=== PATIENT | female | born 1990 | race Caucasian/White ===

== ENCOUNTER 2023-12-31 23:08 | Inpatient (IN) | payer OTHER, SELFPAY ==
[2023-12-31] VITALS (14 sets, daily range): BP systolic 67–115; BP diastolic 33–80; BMI 32.0
--- NOTE | 2023-12-31 17:27 | ED.GENMED ---
History of Present Illness
<Tal Moody PA-C - Last Filed: 01/06/24 21:13>
General
Chief Complaint: Abdominal Symptoms
Source: patient
Exam Limitations: none
Time Seen by Provider: 12/31/23 16:55
Travel History
Have you had any contact with someone who has COVID-19?: No
Do you have any symptoms of coronavirus? Fever > 100 degrees, chills, cough, shortness of breath, sore throat, loss of taste or smell, muscle aches, or headache?: No
History of Present Illness
History of Present Illness:
33-year-old female presents for evaluation of fatigue myalgias fever racing heart. She was seen by the family doctor today and diagnosed with a UTI. She has been having urinary tract infections over the past several months. She was just seen by
the family doctor today and started on Bactrim for another UTI. She has been on Omnicef and Augmentin over the past several months. Her symptoms keep returning. To me she denies any urinary symptoms such as frequency urgency or dysuria. She
notes nausea. She denies chest pain or shortness of breath. She has been having a fever. Temperature at triage was 102.4.
Past History
<Tal Moody PA-C - Last Filed: 01/06/24 21:13>
Past History
ED Past Medical History: Psychiatric (Anxiety) and Other (Myasthenia gravis); Negative Asthma, HTN, Hypercholesterolemia or NIDDM
ED Past Surgical History: (X 2) and Other (Epidermal cyst, Breast reduction, Brain cyst removed, thymectomy)
Social History
Tobacco: Non-smoker
Alcohol: Occasional
Personal:
Living: with family
Phy Exam
<Tal Moody PA-C - Last Filed: 01/06/24 21:13>
Physical Exam
Physical Exam:
General: Well-appearing female no acute respiratory distress
HEENT: Normocephalic atraumatic mucosa dry neck is supple heart: Tachycardic and regular
Lungs: Clear no wheeze or Rales
Abdomen is soft nontender nondistended no guarding or rebound normal bowel sounds no costovertebral angle tenderness
Extremities: No cyanosis or edema
Skin is warm no rash or lesion
Course
<Tal Moody PA-C - Last Filed: 01/06/24 21:13>
Orders/Labs/Results
Orders:
Orders
12/31/23 16:52
EKG [Electrocardiogram (*1)] Urgent
Reason for Study: Bradycardia / Tachycardia
EKG- Treatment ONCE
12/31/23 17:15
0.9% Sodium Chloride 1000 ml [Nss] 1,000 ml IV BOLUS
Acetaminophen [Tylenol] 1,000 mg PO NOW STA
Ondansetron Injectable [Zofran] 4 mg IV NOW STA
CR Chest - 2 Views Urgent
Comment:
Reason For Exam: fever
12/31/23 17:48
COVID-19 Antigen Urgent
Source: Nasal Swab
Complete Blood Count/With Diff Urgent
Comprehensive Metabolic Panel Urgent
Lactic Acid Q4H
Comment: CANCEL 2nd LACTIC ACID IF 1st LACTIC ACID IS LESS THAN 2
Lipase Urgent
Manual Differential Urgent
Blood Culture Q30M
DEMARCUS Source: Blood/Venous
Specimen Description:
Influenza A+B Rapid Molecular Urgent
DEMARCUS Source: Nasal Swab
Specimen Description:
12/31/23 18:23
Blood Culture Q30M
DEMARCUS Source: Blood/Venous
Specimen Description:
12/31/23 18:44
0.9% Sodium Chloride 1000 ml [Nss] 1,000 ml IV BOLUS
12/31/23 20:34
0.9% Sodium Chloride 1000 ml [Nss] 1,000 ml IV BOLUS
12/31/23 20:35
Ibuprofen [Motrin] 600 mg PO NOW STA
12/31/23 20:43
Piperacillin/Tazo 3.375 Gram [Zosyn] 3.375 gram in 50 ml IV NOW
Vancomycin 1 Gram/200 ml [Vancocin] 1 gram in 200 ml IV NOW
12/31/23 20:47
CT Abd/pelvis W Iv Cont Urgent
Comment:
Reason For Exam: fever, abdominal pain
12/31/23 21:17
Lactic Acid Q4H
Comment: CANCEL 2nd LACTIC ACID IF 1st LACTIC ACID IS LESS THAN 2
Monotest Urgent
12/31/23 21:25
CT Chest Pe Study Urgent
Comment:
Reason For Exam: tachycardia, hypotension
12/31/23 22:48
Morphine Sulfate 2 mg IV PACU-Q5MPRN PRN
Morphine Sulfate 4 mg IV PACU-Q5MPRN PRN
Ondansetron Injectable [Zofran] 4 mg IV PACU-ONCEPRN PRN
Prochlorperazine [Compazine] 5 mg IV PACU-ONCEPRN PRN
Notify MD As Directed
Notify physician if: for SDS patients with known or suspected sleep obstructive sleep apnea, monitor in the
PACU.
Notify MD for any apneic/desaturation episodes
O2 Therapy [RESP] Urgent
Titrate/Wean O2 to maintain O2 sat greater than (%): 92
Special Instructions: -Provide supplemental oxygen to achieve O2 sat of 92% or greater.
-After 15 min, may wean O2 and discontinue if patient is able to maintain O2 sat of 92%
or greater during recovery period.
If patient is a discharge home, without oxygen therapy, notify anestheiologist if
unable to maintain O2 SAT of 92% or greater on room air for MD clearance.
12/31/23 22:49
Admit/Transfer Patient As Directed
Co-Sign Provider:
Level of Care: Inpatient admission
Assign to:: ICU
Physician / Group: Herminio
Diagnosis: Sepsis, Pyelonephritis, Ureteral Stone
Reason for Hospitalization: Sepsis, Pyelonephritis, Ureteral Stone
Expected length of stay greater than two midnights?: Yes
ELOS- Estimated Length of Stay in days: 5
I certify the patient meets the requirements for IP care: Yes
12/31/23 22:50
Code Status As Directed
Resuscitation Status: Full Code
12/31/23 23:00
Normosol (Mult Electrolytes) [Normosol-R] 1,000 ml IV PER PROTOCOL
01/01/24 00:23
Acetaminophen [Tylenol] 650 mg PO Q4HPRN PRN
Cefepime HCl [Maxipime] 2,000 mg IV Q8H
HYDROmorphone [Dilaudid] 0.5 mg IV Q4HPRN PRN
Lactated Ringers [Lr] 1,000 ml IV 100 mls/hr
NORepinephrine 4 MG/250 ML [Levophed] 4 mg in 250 ml IV PER PROTOCOL
Initial dose in mcg/min, then titrate:: 4
Titrate to keep:: MAP > 65 mmHg
Titrate by mcg/min:: 1-2 mcg/min
Frequency of titrations (minutes):: 5
Maximum dose in ICU in mcg/min:: 30
Maximum dose in IMU in mcg/min:: 8
Maximum dose in IVU in mcg/min:: 4
Begin to taper infusion when:: Remained at goal for 4hrs
Taper by mcg/min:: 1-2 mcg/min
Frequency of taper (minutes) if patient maintains goal:: 30
Taper to off?: Yes
If infusion off & no longer maintaining goal:: Contact Provider
Prochlorperazine [Compazine] 5 mg IV Q6HPRN PRN
01/01/24 00:23
Consult Notification Routine
Specialty to Notify: Warehouse Distribution Associate
Date consulting provider notified: 01/01/24
Time consulting provider notified: 07:03
Notified:: Provider
Warehouse Distribution Associate Consult Routine
Consulting Provider: Jeremy Bhakta
Was physician already notified: No
Reason for consult: Sepsis / Pyelo
UROLOGY CONSULT Urgent
Consulting Provider: Maximino Cope
Was physician already notified: Yes
Comment: Pyelo / Ureterolithiasis
Activity As Directed
Activity Level: Bedrest
EKG with chest pain [ECG as needed] As Directed
ECG as needed for:: Chest Pain
I/O [Intake/ Output] As Directed
Frequency: Per unit guidelines
Pneumatic Compression Sleeves As Directed
Type: Knee high
Vital Signs As Directed
Frequency: Per unit guidelines
Weight As Directed
Frequency: Daily
Oxygen Therapy [O2 Therapy] [RESP] Routine
Titrate/Wean O2 to maintain O2 sat greater than (%): 94
Rx Incentive Spirometry [RESP] Routine
Frequency: q1h while awake
DX Deep Vein Thrombosis Video Routine
01/01/24 04:42
Basic Metabolic Panel IN AM
Complete Blood Count/No Diff IN AM
Ferritin Routine
Magnesium IN AM
Phosphorus IN AM
TSH Reflex To Free T4 Routine
Vitamin B12 Routine
01/01/24 06:00
EKG [Electrocardiogram (*1)] IN AM
Reason for Study: Chest Pain
01/01/24 08:00
Levothyroxine [Synthroid] 75 mcg PO DAILY
Abnormal Lab Results
12/31/23 12/31/23
17:48 21:17
Hgb 9.6 L g/dL
(12.0-16.0)
Hct 31.0 L %
(37.0-47.0)
MCV 72.8 L fL
(81.0-99.0)
MCH 22.5 L pg
(27.0-31.0)
MCHC 31.0 L g/dL
(33.0-37.0)
RDW 18.6 H %
(11.5-14.5)
Segmented Neutrophils 78 H %
(42-75)
Band Neutrophils 15 H %
(0-3)
Lymphocytes (Manual) 3 L %
(20-51)
Sodium 131 L mmol/L
(135-145)
Potassium 3.4 L mmol/L
(3.5-5.1)
Carbon Dioxide 20 L mmol/L
(22-30)
Creatinine 1.5 H mg/dL
(0.6-1.0)
Lactic Acid 3.5 H mmol/L 2.2 H mmol/L
(0.7-2.0) (0.7-2.0)
Total Bilirubin 1.4 H mg/dl
(0.2-1.3)
12/31/23 17:48
12/31/23 17:48
Vital Signs
Initial and Last Documented VS:
Initial Vital Signs
Temp Pulse Resp BP Pulse Ox
102.4 F H 155 15 115/80 98
12/31/23 16:44 12/31/23 16:44 12/31/23 16:44 12/31/23 16:44 12/31/23 16:44
Last Documented Vital Signs
Temp Pulse Resp BP Pulse Ox
98.1 F 103 16 132/94 96
01/04/24 14:38 01/04/24 14:38 01/04/24 14:38 01/04/24 14:38 01/04/24 14:38
<Yulia Kirby MD - Last Filed: 12/31/23 22:42>
Orders/Labs/Results
Orders:
Orders
12/31/23 16:52
EKG [Electrocardiogram (*1)] Urgent
Reason for Study: Bradycardia / Tachycardia
EKG- Treatment ONCE
12/31/23 17:15
0.9% Sodium Chloride 1000 ml [Nss] 1,000 ml IV BOLUS
Acetaminophen [Tylenol] 1,000 mg PO NOW STA
Ondansetron Injectable [Zofran] 4 mg IV NOW STA
CR Chest - 2 Views Urgent
Comment:
Reason For Exam: fever
12/31/23 17:48
COVID-19 Antigen Urgent
Source: Nasal Swab
Complete Blood Count/With Diff Urgent
Comprehensive Metabolic Panel Urgent
Lactic Acid Q4H
Comment: CANCEL 2nd LACTIC ACID IF 1st LACTIC ACID IS LESS THAN 2
Lipase Urgent
Manual Differential Urgent
Blood Culture Q30M
DEMARCUS Source: Blood/Venous
Specimen Description:
Influenza A+B Rapid Molecular Urgent
DEMARCUS Source: Nasal Swab
Specimen Description:
12/31/23 18:23
Blood Culture Q30M
DEMARCUS Source: Blood/Venous
Specimen Description:
12/31/23 18:44
0.9% Sodium Chloride 1000 ml [Nss] 1,000 ml IV BOLUS
12/31/23 20:34
0.9% Sodium Chloride 1000 ml [Nss] 1,000 ml IV BOLUS
12/31/23 20:35
Ibuprofen [Motrin] 600 mg PO NOW STA
12/31/23 20:43
Piperacillin/Tazo 3.375 Gram [Zosyn] 3.375 gram in 50 ml IV NOW
Vancomycin 1 Gram/200 ml [Vancocin] 1 gram in 200 ml IV NOW
12/31/23 20:47
CT Abd/pelvis W Iv Cont Urgent
Comment:
Reason For Exam: fever, abdominal pain
12/31/23 21:17
Lactic Acid Q4H
Comment: CANCEL 2nd LACTIC ACID IF 1st LACTIC ACID IS LESS THAN 2
Monotest Urgent
12/31/23 21:25
CT Chest Pe Study Urgent
Comment:
Reason For Exam: tachycardia, hypotension
12/31/23 22:48
Morphine Sulfate 2 mg IV PACU-Q5MPRN PRN
Morphine Sulfate 4 mg IV PACU-Q5MPRN PRN
Ondansetron Injectable [Zofran] 4 mg IV PACU-ONCEPRN PRN
Prochlorperazine [Compazine] 5 mg IV PACU-ONCEPRN PRN
Notify MD As Directed
Notify physician if: for SDS patients with known or suspected sleep obstructive sleep apnea, monitor in the
PACU.
Notify MD for any apneic/desaturation episodes
O2 Therapy [RESP] Urgent
Titrate/Wean O2 to maintain O2 sat greater than (%): 92
Special Instructions: -Provide supplemental oxygen to achieve O2 sat of 92% or greater.
-After 15 min, may wean O2 and discontinue if patient is able to maintain O2 sat of 92%
or greater during recovery period.
If patient is a discharge home, without oxygen therapy, notify anestheiologist if
unable to maintain O2 SAT of 92% or greater on room air for MD clearance.
12/31/23 22:49
Admit/Transfer Patient As Directed
Co-Sign Provider:
Level of Care: Inpatient admission
Assign to:: ICU
Physician / Group: Herminio
Diagnosis: Sepsis, Pyelonephritis, Ureteral Stone
Reason for Hospitalization: Sepsis, Pyelonephritis, Ureteral Stone
Expected length of stay greater than two midnights?: Yes
ELOS- Estimated Length of Stay in days: 5
I certify the patient meets the requirements for IP care: Yes
12/31/23 22:50
Code Status As Directed
Resuscitation Status: Full Code
12/31/23 23:00
Normosol (Mult Electrolytes) [Normosol-R] 1,000 ml IV PER PROTOCOL
01/01/24 00:23
Acetaminophen [Tylenol] 650 mg PO Q4HPRN PRN
Cefepime HCl [Maxipime] 2,000 mg IV Q8H
HYDROmorphone [Dilaudid] 0.5 mg IV Q4HPRN PRN
Lactated Ringers [Lr] 1,000 ml IV 100 mls/hr
NORepinephrine 4 MG/250 ML [Levophed] 4 mg in 250 ml IV PER PROTOCOL
Initial dose in mcg/min, then titrate:: 4
Titrate to keep:: MAP > 65 mmHg
Titrate by mcg/min:: 1-2 mcg/min
Frequency of titrations (minutes):: 5
Maximum dose in ICU in mcg/min:: 30
Maximum dose in IMU in mcg/min:: 8
Maximum dose in IVU in mcg/min:: 4
Begin to taper infusion when:: Remained at goal for 4hrs
Taper by mcg/min:: 1-2 mcg/min
Frequency of taper (minutes) if patient maintains goal:: 30
Taper to off?: Yes
If infusion off & no longer maintaining goal:: Contact Provider
Prochlorperazine [Compazine] 5 mg IV Q6HPRN PRN
01/01/24 00:23
Consult Notification Routine
Specialty to Notify: Warehouse Distribution Associate
Date consulting provider notified: 01/01/24
Time consulting provider notified: 07:03
Notified:: Provider
Warehouse Distribution Associate Consult Routine
Consulting Provider: Jeremy Bhakta
Was physician already notified: No
Reason for consult: Sepsis / Pyelo
UROLOGY CONSULT Urgent
Consulting Provider: Maximino Cope
Was physician already notified: Yes
Comment: Pyelo / Ureterolithiasis
Activity As Directed
Activity Level: Bedrest
EKG with chest pain [ECG as needed] As Directed
ECG as needed for:: Chest Pain
I/O [Intake/ Output] As Directed
Frequency: Per unit guidelines
Pneumatic Compression Sleeves As Directed
Type: Knee high
Vital Signs As Directed
Frequency: Per unit guidelines
Weight As Directed
Frequency: Daily
Oxygen Therapy [O2 Therapy] [RESP] Routine
Titrate/Wean O2 to maintain O2 sat greater than (%): 94
Rx Incentive Spirometry [RESP] Routine
Frequency: q1h while awake
DX Deep Vein Thrombosis Video Routine
01/01/24 04:42
Basic Metabolic Panel IN AM
Complete Blood Count/No Diff IN AM
Ferritin Routine
Magnesium IN AM
Phosphorus IN AM
TSH Reflex To Free T4 Routine
Vitamin B12 Routine
01/01/24 06:00
EKG [Electrocardiogram (*1)] IN AM
Reason for Study: Chest Pain
01/01/24 08:00
Levothyroxine [Synthroid] 75 mcg PO DAILY
Abnormal Lab Results
12/31/23 12/31/23
17:48 21:17
Hgb 9.6 L g/dL
(12.0-16.0)
Hct 31.0 L %
(37.0-47.0)
MCV 72.8 L fL
(81.0-99.0)
MCH 22.5 L pg
(27.0-31.0)
MCHC 31.0 L g/dL
(33.0-37.0)
RDW 18.6 H %
(11.5-14.5)
Segmented Neutrophils 78 H %
(42-75)
Band Neutrophils 15 H %
(0-3)
Lymphocytes (Manual) 3 L %
(20-51)
Sodium 131 L mmol/L
(135-145)
Potassium 3.4 L mmol/L
(3.5-5.1)
Carbon Dioxide 20 L mmol/L
(22-30)
Creatinine 1.5 H mg/dL
(0.6-1.0)
Lactic Acid 3.5 H mmol/L 2.2 H mmol/L
(0.7-2.0) (0.7-2.0)
Total Bilirubin 1.4 H mg/dl
(0.2-1.3)
12/31/23 17:48
12/31/23 17:48
Vital Signs
Initial and Last Documented VS:
Initial Vital Signs
Temp Pulse Resp BP Pulse Ox
102.4 F H 155 15 115/80 98
12/31/23 16:44 12/31/23 16:44 12/31/23 16:44 12/31/23 16:44 12/31/23 16:44
Last Documented Vital Signs
Temp Pulse Resp BP Pulse Ox
98.1 F 103 16 132/94 96
01/04/24 14:38 01/04/24 14:38 01/04/24 14:38 01/04/24 14:38 01/04/24 14:38
<Tal Moody PA-C - Last Filed: 01/06/24 21:13>
MDM/Problems Addressed
Differential Diagnosis Includes:
Patient with fever and tachycardia possible UTI as an outpatient. Will check urinalysis here as well as septic prep including lactic acid blood cultures labs chest x-ray. She is febrile and tachycardic. Will hydrate give Tylenol and Zofran.
Patient has history of recurrent UTIs but is not responding well to the antibiotics.
<Tal Moody PA-C - Last Filed: 01/06/24 21:13>
*Critical Care Note
Total Time (30-74mins, 75-104mins- exclusive of procedures): Not Applicable
<Yulia Kirby MD - Last Filed: 12/31/23 22:42>
*Radiology
Radiology exam reviewed: radiology read reviewed
*Critical Care Note
comment:
55 minutes of critical care personally given by me reassessing patient's heart rate, blood pressure, reviewing patient's lab work, CT report as well as speaking to urology and hospitalist
<Yulia Kirby MD - Last Filed: 12/31/23 22:42>
Patient Management
Discussion with other providers: Hospitalist and Other (urology, Dr Cope)
<Tal Moody PA-C - Last Filed: 01/06/24 21:13>
Update Note
Update Note:
Patient reevaluated multiple times. Patient presents to be tachycardic. She became hypotensive. She received 3 L of IV normal saline. Lactic acid was elevated initially with a 15% bandemia. Patient tried multiple times to provide urine
specimen. Urine specimen is pending. But given persistent symptoms CT of abdomen and chest were ordered. PE study and abdomen IV contrast. There is potentially a mid ureteral stone on the left side. Suspect likely sepsis related to UTI and
kidney stone. These are pending official radiologist interpretation
No meningeal signs on exam.
Case signed out to ED attending.
<Yulia Kirby MD - Last Filed: 12/31/23 22:42>
Update Note
Update Note:
Patient reevaluated multiple times. Patient presents to be tachycardic. She became hypotensive. She received 3 L of IV normal saline. Lactic acid was elevated initially with a 15% bandemia. Patient tried multiple times to provide urine
specimen. Urine specimen is pending. But given persistent symptoms CT of abdomen and chest were ordered. PE study and abdomen IV contrast. There is potentially a mid ureteral stone on the left side. Suspect likely sepsis related to UTI and
kidney stone. These are pending official radiologist interpretation
No meningeal signs on exam.
Case signed out to ED attending.
CT shows obstructed left ureteral stone. Case discussed with Dr. Cope who would like to take patient to the operating room for stent. Patient is very agreeable to this. She is still hypotensive and tachycardic. Family is at the bedside and
also agrees with management to go to the OR.
ED Attending Note
<Tal Moody PA-C - Last Filed: 01/06/24 21:13>
-
Portions of this chart may have been created with voice recognition software.� Occasional wrong word or��sound alike� substitutions may have occurred due to the inherent limitations of voice recognition software.
<Yulia Kirby MD - Last Filed: 12/31/23 22:42>
ED Attending Note
Patient seen and examined by attending physician: Yes
I performed the substantive portion of visit, reviewed & personally made and approve the management plan that is documented in note by myself or ZAHEER.: Yes
ED Attending Note:
Patient presents with fever and heart rate disproportionately elevated with regards to body temperature. Patient is on her third liter of IV fluids and blood pressure 80 systolic. I am worried about sepsis. If needed, we will start patient on
pressors. Wide spectrum antibiotic started. Patient appears flushed but is fully awake, alert and conversational. Lungs sound clear. Heart sounds regular but tachy. Abdomen is soft throughout with mild lower abdominal tenderness. Still
awaiting urinalysis.
Discharge Plan
Departure
Patient Disposition: Admit
Date of Disposition: 12/31/23
Time of Disposition: 22:12
Admit to: OR
Presentation/result/management discussed w/ accepting MD/DO: Hospitalist
Patient with high blood pressure during this ER visit?: No
Condition: Critical
Discharge Problem:
urosepsis, Hypotension
Interventions
Interventions:
*Risk Screen - Suicide Last Done: 12/31/23 23:19
*General Assessment Last Done: 12/31/23 23:19
*Neglect/Abuse Screening Last Done: 12/31/23 23:19
ED- Fall Risk Assessment Last Done: 12/31/23 17:50
*ED COVID-19 Vaccine History Last Done: 12/31/23 16:44
*Nursing Disposition Last Done: 12/31/23 23:19
[id number] Assessment Last Done: 12/31/23 17:50
Discharge Date and Time
Discharge Date/Time: 12/31/23 23:20
[2023-12-31] MEDS: NSS 1000 IV ×3 (17:47→20:42)
[2023-12-31] MEDS: ZOFRAN 4 MG IV (17:49)
[2023-12-31] MEDS: TYLENOL 1000 MG PO (17:51)
[2023-12-31 18:13] LABS: Hemoglobin 9.6 g/dL (12.0-16.0); Mean Corpuscular Hgb 22.5 pg (27.0-31.0); Mean Corpuscular Volume 72.8 fL (81.0-99.0); Mean Platelet Volume 8.7 fL (7.4-10.4); Platelet Count 378 10^3/uL (130-400); Red Blood Cell Count 4.26 10^6/uL (4.20-5.40); Red Cell Dist. Width 18.6 % (11.5-14.5); White Blood Cell Count 6.6 10^3/uL (4.8-10.8)
[2023-12-31 18:22] LABS: Lactic Acid 3.5 mmol/L (0.7-2.0)
[2023-12-31 18:23] LABS: ALT (SGPT) 18 U/L (0-35); AST (SGOT) 23 U/L (14-36); Albumin 3.9 g/dl (3.5-5.0); Alkaline Phosphatase 101 U/L (38-126); Blood Urea Nitrogen 13 mg/dl (7-17); Calcium 8.9 mg/dl (8.4-10.2); Carbon Dioxide 20 mmol/L (22-30); Chloride 98 mmol/L (98-107); Estimated Creatinine Clearance 49 ml/min; Glucose 94 mg/dl (70-99); Potassium 3.4 mmol/L (3.5-5.1); Sodium 131 mmol/L (135-145); Total Bilirubin 1.4 mg/dl (0.2-1.3); Total Protein 7.1 g/dl (6.3-8.2)
[2023-12-31 18:24] LABS: COVID-19 Antigen Negative (Negative)
[2023-12-31 18:27] LABS: Absolute Neutrophils -Man Diff 6.1 10^3/uL (1.4-6.5); Band Neutrophils 15 % (0-3); Lymphocytes 3 % (20-51); Monocytes 2 % (2-9); Segmented Neutrophils 78 % (42-75)
[2023-12-31 18:28] LABS: Anisocytosis Slight; Metamyelocytes 2 % (-); Normal RBC Morphology No; Ovalocytes Slight; Platelets Checked Yes; Total Cells Counted 100
[2023-12-31 18:35] LABS: Lipase 29 U/L (23-300)
[2023-12-31] MEDS: MOTRIN 600 MG PO (20:41)
[2023-12-31] MEDS: ZOSYN 50 IV (20:51)
[2023-12-31] MEDS: VANCOCIN 200 IV (21:21)
[2023-12-31 21:40] LABS: Monotest Negative (Negative)
[2023-12-31 21:42] LABS: Lactic Acid 2.2 mmol/L (0.7-2.0)
--- NOTE | 2023-12-31 22:16 | EDRN ---
Attempt @ straight cath; resistance met, unable to pass cath and no urine output. aware.
--- NOTE | 2023-12-31 23:05 | HPS.HSE ---
Family Physician
-
Family Physician: Amira Mak
Chief Complaint
-
Fevers / Chills, N/V
History of Present Illness
Patient is a 33y F with PMH significant for myasthenia gravis, brain mass and obesity who presents to ED complaining of fevers / chills, myalgias and N/V. History obtained from patient and family at the bedside. Patient states that she has been
having intermittent symptoms since 07/2023. She was seen in the ED here in October for similar symptoms and diagnosed with UTI. She was treated with abx and felt improved for a time; however, her symptoms eventually recurred. Her current symptoms
have been present for about 2 days and include fevers and shaking chills, N/V, myalgias and fatigue. She denies any abdominal pain or flank pain. No dysuria or grossly bloody urine.
In the ED, patient is noted to be febrile to 102.9, tachycardic in the 150s and hypotensive as low as 60s/30s.
Medical History
Past Medical History
Past Medical History: Reports Other
Additional Past Medical History:
Myasthenia Gravis (last episode was 08/2023)
Hypothyroidism
Epidermoid Cyst R Occipital Region
Anxiety / Depression
Obesity
Past Surgical History: Reports Other
Additional Past Surgical History:
Right Occipital Epidermoid Cyst Excision
Breast Reduction
x 2
Thymectomy
Social History
Tobacco: Non-smoker
Alcohol: Occasional
Drug: None
Personal:
Living: With Family
Family History
Family History: Other (Mother: HTN)
Allergies / Home Medications
Allergies reflects when Allergies were last updated in [facility].
Home Medications with original date entered in [facility]
Allergy/Medication List:
Allergies
Allergy/AdvReac Type Severity Reaction Status Date / Time
benzonatate Allergy Itching Verified 12/31/23 19:40
[From Mone Kayode]
Home Medications
acetaminophen 325 mg tablet (Tylenol) 650 mg PO Q4H PRN mild pain 12/31/23
levothyroxine 75 mcg tablet 75 mcg PO DAILY 12/31/23
sulfamethoxazole 800 mg-trimethoprim 160 mg tablet 1 tab PO BID 12/31/23
venlafaxine 150 mg capsule,extended release 24 hr 150 mg PO HS 12/31/23
Review of Systems
-
History Source: Patient and Family
A 12 point ROS was completed and negative except as noted: Yes
Constitutional: Reports Fever, Fatigue and Chills
EENT: Denies Sore Throat
Respiratory: Denies Cough or Trouble Breathing
Cardiac: Denies Chest Pain or Palpitations
Abdomen/GI: Reports Nausea, Vomiting and Anorexia; Denies Abdominal Pain, Diarrhea, Bloody Stools or Black Stools
: Denies Dysuria, Frequency, Flank Pain, Bleeding or Dark Urine
Musculoskeletal: Denies Joint Pain or Edema
Neurological: Reports Dizzy and Headache
Psych: Denies Depression or Anxiety
Physical Exam
Vital Signs
Vital Signs
Temp Pulse Resp BP Pulse Ox
99.6 F 121 25 86/46 97
12/31/23 19:19 12/31/23 22:15 12/31/23 22:15 12/31/23 22:02 12/31/23 22:15
Physical Exam
General: Other (Ill-appearing 33y F awake and alert and able to answer questions.)
HEENT: Other (Dry MM. )
Respiratory: Clear; No Wheezes, Rales or Rhonchi
Cardiac: S1/S2 and Tachycardia; No Murmur
GI: Soft, Non Tender, Non Distended and Normal Bowel Sounds
Musculoskeletal: No Clubbing, No Cyanosis and No Edema
Neuro: AO x 3 and Nonfocal/grossly intact
Laboratory Results
-
12/31/23 17:48
12/31/23 17:48
Laboratory Results
Lactic Acid 2.2 mmol/L (0.7-2.0) H 12/31/23 21:17
Total Bilirubin 1.4 mg/dl (0.2-1.3) H 12/31/23 17:48
AST 23 U/L (14-36) 12/31/23 17:48
ALT 18 U/L (0-35) 12/31/23 17:48
Alkaline Phosphatase 101 U/L (38-126) 12/31/23 17:48
Lipase 29 U/L (23-300) 12/31/23 17:48
Impression/Plan
-
A/P: Patient is a 33y F with PMH significant for hypothyroidism, myasthenia and depression who presents to ED complaining of fevers / chills, N/V/D x 2 days.
Obstructing Right Ureteral Stone
Right Pyelonephritis secondary to the above
Sepsis / Septic Shock secondary to the above
- Patient to be taken urgently to the OR for ureteroscopy, stent, stone retrieval to alleviate obstruction.
- Admit to ICU post-procedure.
- Patient presents with symptoms and imaging evidence consistent with R sided pyelonephritis and life threatening organ dysfunction as evidenced by hypotension and IRENE.
- IV abx with cefepime pending culture data (October culture was positive for hagan-senstive E coli).
- Aggressive IVF support +/- pressor support as needed to maintain perfusion.
- Supportive care with antipyretics, antiemetics, pain control, etc.
- Follow for clinical improvement.
- Appreciate Urology evaluation and urgent intervention.
- Cupola Tapper Helper consultation.
IRENE
- SCr = 1.5 compared to baseline of 0.7.
- Likely secondary to above obstruction plus sepsis and hypotension.
- IVF / pressor support as noted above to maintain adequate perfusion.
- Follow for improvement in renal function.
Hypothyroidism
- Continue T4 supplementation.
Myasthenia Gravis
- Stable. No symptoms since 08/2023.
- Patient is s/p thymectomy and notes that her symptoms gradually resolved following this procedure.
- Not currently on any maintenance medications, etc.
- Monitor for any new symptoms, etc.
- Consider acute steroid therapy should any symptoms develop.
Microcytic Anemia
- Unclear etiology. No reported / specific blood loss, etc.
- Check iron studies, etc.
- Follow for changes post-operatively and with aggressive volume resuscitation.
Mild Hyponatremia
Mild Hypokalemia
- IVF support / electrolyte replacement.
- Follow for improvement and adjust fluids as needed.
DVT Prophylaxis: SCDs
Code Status: Full
--- NOTE | 2023-12-31 23:32 | W.PN.URO.CBU ---
Today's Communication / Plan
-
to op room cysto stent attempt
Assessment / Plan
-
small but obstructing stoe with fever 102 and hypotension for stent placemnt
Diagnosis
-
Date of Service: December 31, 2023
-
Patient Diagnosis:left obstructing stone with sepsis syndrome
Post Op Day:
Subjective
-
left colic and feels poor;y flu like sxs
Objective
-
Vital Signs
Temp Pulse Resp BP Pulse Ox
99.6 F 118 25 86/55 96
12/31/23 19:19 12/31/23 23:00 12/31/23 23:00 12/31/23 23:00 12/31/23 23:00
Laboratory Results
12/31/23 17:48
12/31/23 17:48
Review of Systems
-
Constitutional: Fever, Fatigue, Night Sweats and Chills
: Flank Pain
Physical Exam
-
General - well developed, well nourished, toxic
Chest - clear bilaterally
Abdomen - soft, non-tender, positive bowel sounds, left CVAT, no incisional pain or distention
Genitalia - normal
Rectal - normal
Skin - warm & dry with no rash
Neuro - AOx3, no motor deficits
Extremities - no clubbing, no cyanosis, no edema
Incision - clean, dry
Dressing - clean, dry, intact
Care Review
Data Reviewed
Discussed with: Hospitalist, Nursing and Family
CT Scan: Image Pers Reviewed
--- NOTE | 2023-12-31 23:57 | W.PN.UPDATE ---
Update Note
Progress Note Update
sucessful stenting and stome manipulation cathed urine specimen sent janey highly obstructed coelho polaced to allow i/o measurements iv orders per retail department manager may eat
[2024-01-01] VITALS (50 sets, daily range): BP systolic 83–147; BP diastolic 51–125; BMI 32.6
[2024-01-01 00:29] LABS: Urine Albumin 1+ (Neg - Trace); Urine Bilirubin Negative (Negative); Urine Color Yellow; Urine Glucose Negative (Negative); Urine Ketone Trace (Negative); Urine Leukocyte 2+ (Negative); Urine Nitrite Negative (Negative); Urine Occult Blood 2+ (Negative); Urine Specific Gravity 1.005 (<1.030); Urine Urobilinogen Negative (Neg - 1+)
[2024-01-01] MEDS: LEVOPHED 250 IV (00:31)
--- NOTE | 2024-01-01 00:32 | PTCARENOTE ---
Pt received from PACU at 0020.
[2024-01-01 00:35] LABS: Urine Character Cloudy (Clear)
[2024-01-01] MEDS: LR 1000 IV ×3 (00:52→16:00)
[2024-01-01 01:05] LABS: Urine Bacteria Moderate (Negative); Urine White Cell 50-60 /HPF (0-5)
[2024-01-01] MEDS: MAXIPIME 2000 MG IV ×2 (01:48→14:10)
[2024-01-01] MEDS: STERILE WATER FOR INJECTION 10 ML IV ×2 (01:50→14:10)
[2024-01-01 02:18] LABS: Lactic Acid 1.4 mmol/L (0.7-2.0)
--- NOTE | 2024-01-01 02:42 | PTCARENOTE ---
Pt tolerated transfer well.Pt received with Levophed infusing at 2mcgs an hour,BP once settled 92/63,ST front desk monitor,O2 sats on 2lnc 99%.Pt is oriented,denies pain,physical assessment preformed with ease.Mosher catheter intact,urine is
yellow,clear.IVF LR initiated at 200mls an hour.Close observation ongoing throughout the night.
[2024-01-01 04:59] LABS: Hematocrit 27.4 % (37.0-47.0); Hemoglobin 8.5 g/dL (12.0-16.0); Mean Corpuscular Hgb 22.8 pg (27.0-31.0); Mean Corpuscular Volume 73.5 fL (81.0-99.0); Mean Platelet Volume 8.6 fL (7.4-10.4); Platelet Count 305 10^3/uL (130-400); Red Blood Cell Count 3.73 10^6/uL (4.20-5.40); Red Cell Dist. Width 18.6 % (11.5-14.5); White Blood Cell Count 15.4 10^3/uL (4.8-10.8)
[2024-01-01 05:21] LABS: APTT 26.2 Sec (23.4-35.0); INR 1.67; PT 19.5 Sec (11.4-14.6)
[2024-01-01 06:24] LABS: Blood Urea Nitrogen 13 mg/dl (7-17); Calcium 7.4 mg/dl (8.4-10.2); Carbon Dioxide 14 mmol/L (22-30); Chloride 113 mmol/L (98-107); Estimated Creatinine Clearance 66 ml/min; Glucose 143 mg/dl (70-99); Iron 28 ug/dl (37-170); Magnesium 1.6 mg/dl (1.6-2.3); Percent Saturation 11 % (20-50); Phosphorus 3.8 mg/dl (2.5-4.5); Sodium 136 mmol/L (135-145); Total Iron Binding Capacity 234 ug/dl (265-497); eGFR > 60.00
--- NOTE | 2024-01-01 06:41 | W.PN.ANS.POP ---
Anesthesia Post Operative
- Anesthesia Post Op Note
Vital Signs Stable-See Nursing Note: Yes (levophed)
Airway Patent: Yes
Adequate Pain Control: Yes
Change in Mental Status: No
Current Postoperative Nausea & Vomiting: No
Anesthesia Complications: No
General Anesthetic Recall: No
Unplanned Admission: No
Post Op Hydration Adequate: Yes
[2024-01-01 06:42] LABS: TSH Reflex To Free T4 0.96 uIU/ml (0.47-4.68)
[2024-01-01 07:02] LABS: Vitamin B12 416 pg/ml (239-931)
[2024-01-01] MEDS: SYNTHROID 75 MCG PO (07:25)
[2024-01-01] MEDS: NSS (PRESERVATIVE FREE) 10 ML IV (07:25)
[2024-01-01] MEDS: PROTONIX IV 40 MG IV (07:25)
--- NOTE | 2024-01-01 07:56 | PTCARENOTE ---
Patient received from mold shifter, presents as assessed. Patient is alert and oriented x3, pleasant. Moves all extremities. NSR to ST on the monitor, good pulses, no edema. Patient maintains on 2lnc, lungs CTA. Abdomen round, obese. Tender to
palpation in left upper and lower quadrants. Patient reports intermittent nausea. Patient reports minor bladder spasms. Mosher catheter in place draining clear yellow urine. Mosher care provided. Skin CDI. Levophed infusing, LR infusing. Patient
resting currently, offers no complaints.
--- NOTE | 2024-01-01 08:02 | CON.INTV ---
Consultation
Consultation Request
Date/Time Consultation Requested: 01/01/202422
Date/Time Consultation Performed: 01/01/2024800
Requesting Provider: Dr. Durham
Performing Provider: Jeremy Bhakta MD
Reason for Consultation: Shock
Medical History
-
Chief Complaint: Weak/chills/fever
History of Present Illness:
33-year-old F with PMHx of MG s/p thymectomy, and recurrent UTI who p/w fever, chills and general malaise for several days. She says that she has been on several different antibiotics since July 2023. 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
prescribed Bactrim and a referral to urology was also given, however this was not going to be available until next month. Her chills continued and she had a fever yesterday to 103.8 �F. She was then advised to come to the hospital by a friend who
works here at [facility]. In the ER she was febrile to 102.4 �F, tachycardic to 155 bpm, breathing at 15 breaths/min, BP 115/80 and saturating 98% on room air. Unfortunately her blood pressure continued to drop and was in the 80s/40s
requiring vasopressors with Levophed. CT A/P shows 2.5mm obstructing calculus of proximal-mid left ureter with mild left hydronephrosis. Labs showed hyponatremia 131, hypokalemia to 3.4, IRENE with creatinine 1.5, lactate elevated at 3.5, total
bilirubin elevated at 1.4. Hb 9.6, platelets 378. Monoscreen was negative and COVID antigen was also negative. Patient was given 3 L total of IV fluids with NS 0.9%, as well as given vancomycin/Zosyn, ibuprofen and Tylenol. Urology was consulted
and patient was brought to OR for cystoscopy with stone manipulation and JJ-stent placement. Pt TRX to ICU post-op due to hypotension on vasopressors.
When I saw the patient this morning she was in bed saying she feels much better, still feels very tired. She is having bladder spasms at times but she is getting Valium which is helping. She is still tachycardic and occasionally heart rate drops
down to the 50s. Current vitals are: Heart rate 126, BP 105/73, SpO2 98% on room air. She is currently off of Levophed. She denies any back pain, headache, chest pain, shortness of breath, fevers or chills.
PMHx: Myasthenia gravis (last episode reportedly in August 2023), hypothyroidism, epidermoid cyst right occipital region, anxiety/depression, obesity
PSHx: Right occipital epidermoid cyst excision, breast reduction, section X2, thymectomy
Past Medical History
Past Medical History: Other (above as per HPI)
Past Surgical History: Other (above as per HPI)
Social History
Tobacco: Non-smoker
Alcohol: Occasional
Drug: None
Personal:
Living: With Family
Family History
Family History: Hypertension (Mother)
Allergies / Home Medications
Allergies
Allergy/AdvReac Type Severity Reaction Status Date / Time
benzonatate Allergy Itching Verified 12/31/23 19:40
[From Mone Headley]
Home Medications
Medication Instructions Recorded Confirmed Last Taken Type
acetaminophen 325 mg tablet 650 mg PO Q4H PRN mild pain 12/31/23 12/31/23 12/31/23 History
(Tylenol)
levothyroxine 75 mcg tablet 75 mcg PO DAILY Thyroid 12/31/23 12/31/23 12/31/23 History
sulfamethoxazole 800 1 tab PO BID Infection 12/31/23 12/31/23 12/31/23 History
mg-trimethoprim 160 mg tablet
venlafaxine 150 mg 150 mg PO HS Mental Health/Anxiety 12/31/23 12/31/23 12/30/23 History
capsule,extended release 24 hr
Review of Systems
-
History Source: Patient
All other systems: Negative unless noted (12 point ROS performed and is negative unless mentioned above.)
Vitals / Labs / Diagnostic Testing
Vital Signs
Temp Pulse Resp BP Pulse Ox
99.0 F 122 26 131/83 99
01/01/24 07:53 01/01/24 07:45 01/01/24 07:45 01/01/24 07:30 01/01/24 07:47
Lab Data
01/01/24 04:42
01/01/24 04:42
Laboratory Results
01/01/24
04:42
PT 19.5 H
INR 1.67
APTT 26.2
Microbiology
12/31/23 17:48 Nasal Swab Influenza Types A & B (JENNIFER) - Final
Negative for Influenza A & B, NAAT
Negative results must be combined with clinical observations
and patient history.
Nucleic Acid Amplification test (NAAT)performed on the
[employer] platform.
Diagnostic Testing:
Physical Exam
-
HEENT: Normocephalic, Anicteric and Moist Mucous Membranes
Cardiovascular: Peripheral Edema (negative) and Other (Tachycardic)
Respiratory: Rales (Bibasilar) and Non-Labored Respirations
GI: Soft, Non Distended and Non Tender
Neurology: Awake and Alert
Skin: Warm and Dry
General: Comfortable and Chills (negative)
Assessment
-
Assessment: 33-year-old F with PMHx of MG s/p thymectomy, and recurrent UTI who p/w fever, chills and general malaise for several days. She says that she has been on several different antibiotics since July 2023. She saw her PCP 1 day [employer] and
was prescribed Bactrim and a referral to urology was also given, however this was not going to be available until next month. Her chills continued and she had a fever yesterday to 103.8 �F. She was then advised to come to the hospital by a friend
who works here at [facility]. In the ER she was febrile to 102.4 �F, tachycardic to 155 bpm, breathing at 15 breaths/min, BP 115/80 and saturating 98% on room air. Unfortunately her blood pressure continued to drop and was in the 80s/40s
requiring vasopressors with Levophed. CT A/P shows 2.5mm obstructing calculus of proximal-mid left ureter with mild left hydronephrosis. Labs showed hyponatremia 131, hypokalemia to 3.4, IRENE with creatinine 1.5, lactate elevated at 3.5, total
bilirubin elevated at 1.4. Hb 9.6, platelets 378. Monoscreen was negative and COVID antigen was also negative. Patient was given 3 L total of IV fluids with NS 0.9%, as well as given vancomycin/Zosyn, ibuprofen and Tylenol. Urology was consulted
and patient was brought to OR on 12/31/2023 for cystoscopy with stone manipulation and JJ-stent placement. Pt TRX to ICU post-op due to hypotension on vasopressors.
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
Impression:
#Septic shock related to stone-related UTI (pyelonephritis)
#Left ureteral 2.5 mm obstructive calculus with mild left hydronephrosis s/p cystoscopy with stone manipulation and JJ-stent placement (POD#1)
#Pyelonephritis due to left ureteral obstructive stone
#Tachycardia - appears to be sinus and occasionally HR drops to mid-50s (QTc 528ms on admission EKG)
#Acute kidney injury due to postobstructive acidemia in the setting of shock
#Metabolic acidosis with normal anion gap
#Acute anemia on chronic anemia (baseline Hb 9.5-10g/dL - appears to have AOCD with low TIBC and normal ferritin)
#Hx of hagan-sensitive E. coli UTI (Oct 2023)
#Elevated Total bilirubin with otherwise normal LFTs
Plan:
- Continue vasopressors and wean off Levophed as tolerated while maintaining MAP >65
- Patient continues to have bladder spasms � continue with Valium as needed
- Continue with IV antibiotics with cefepime (started 11/02/2023) and narrow ABx once cultures return and she is off vasopressors for >12-24 hrs - I presume she will need 10-14 days total of ABx
- Urology on board and recs appreciated --> would strain urine in attempt to collect stone for analysis. Eventual outpatient follow up for ESWL
- Follow up infectious workup with blood and urine Cx
- Goal BG 140-180mg/dL
- Monitor Hb with serial H/H and transfuse if needed to keep Hb>7g/dL, keep plt>50k
- Monitor tachycardia and if worsens then re-check EKG and consider cardiology consult
- Considering she has received multiple contrast CT studies and already has an IRENE, she is at risk for contrast-induced IRENE. Resume IVF for now in attempt to help prevent worsening IRENE
- Replete electrolytes with K>4, Mg>2
- Resume effexor
- Continue LT4
- Pain control
- Anti-emetics as needed
- Nebulized bronchodilators as needed - pt not currently bronchospastic so will hold off
- stress ulcer ppx: n/a
- DVT ppx: start HSQ 5000 units q12hr given her acute anemia
Critical care statement: A total of 40 minutes of critical care time was provided for this patient today. This includes management of unstable vital signs, evaluation of the patient at bedside, reviewing the patient's pertinent medical records
including radiographs, microbiology, laboratory evaluations, and discussion with primary team, consultants, pharmacy, nutrition, physical therapy, case management, charge nurse, critical care nursing, and respiratory therapy.
Data:
CXR 12-31-2023: No active cardiopulmonary disease.
CT Abd/Pelvis with IV contrast 12-31-2023:
1). There is a 2.5 mm obstructing calculus in the proximal-mid left ureter associated with mild left hydronephrosis, mild left perinephric edema and delayed function on the left. There is mild associated thickening of the wall of proximal left ureter
2). There is a 1 mm nonobstructing calculus in the lower pole of the right kidney
CTA Chest 12-31-2023: There is no pulmonary embolism
[2024-01-01] MEDS: VALIUM INJECTION 5 MG IV (09:13)
--- NOTE | 2024-01-01 11:40 | W.PN.URO.CBU ---
Today's Communication / Plan
-
per hospitalst
Assessment / Plan
-
small but obstructing stoe with fever 102 and hypotension now stabilizing post stent plan as per hospitalist eventual outpatient tx of stone
Diagnosis
-
Date of Service: January 01, 2024
-
Patient Diagnosis:
Post Op Day:
Patient Diagnosis:left obstructing stone with sepsis syndrome
Post Op Day:
Subjective
-
much improved
Objective
-
Vital Signs
Temp Pulse Resp BP Pulse Ox
97.2 F 88 29 112/85 97
01/01/24 11:24 01/01/24 10:00 01/01/24 10:00 01/01/24 10:00 01/01/24 10:00
Intake and Output
12/31/23 01/01/24 01/02/24
06:59 06:59 06:59
Intake Total 1082.5 / 1297.5 856.3 / 856.3
Output Total 2800 / 3300 800 / 800
Balance -1717.5 / -2002.5 56.3 / 56.3
Intake:
IV fluids (Total) 1082.5 / 1297.5 856.3 / 856.3
Levophed 82.5 / 97.5 56.3 / 56.3
Lr 1,000 ml @ 100 mls/hr IV . 1000 / 1200 800 / 800
Q10H LULÚ Rx#:[id number]
Output:
Urine, Mosher 2800 / 3300 800 / 800
Laboratory Results
01/01/24 04:42
Review of Systems
-
: Frequency
Physical Exam
-
General - well developed, well nourished, no acute distress
Chest - clear bilaterally
Abdomen - soft, non-tender, positive bowel sounds, no CVAT, no incisional pain or distention
Genitalia - normal
Rectal - normal
Skin - warm & dry with no rash
Neuro - AOx3, no motor deficits
Extremities - no clubbing, no cyanosis, no edema
Incision - clean, dry
Dressing - clean, dry, intact
Care Review
Data Reviewed
Discussed with: Nursing and Family
CT Scan: Image Pers Reviewed
--- NOTE | 2024-01-01 12:00 | PTCARENOTE ---
Patient IVF adjusted per order. Levophed titrating down. Effexor to restart tonight. Patient reports bladder spasms, Dr. Cope informed, valium order received. Patient is resting comfortably without issue.
[2024-01-01] MEDS: LR IV (14:10)
[2024-01-01 15:52] LABS: Hemoglobin 8.5 g/dL (12.0-16.0)
[2024-01-01] MEDS: CALCIUM GLUCONATE 100 IV (16:00)
--- NOTE | 2024-01-01 16:00 | PTCARENOTE ---
Patient tolerated 2 hours OOB to chair. IVF and calcium administered per order. Patient resting in bed, offers no complaints.
--- NOTE | 2024-01-01 17:05 | W.PN.HOSP.TC ---
Today's Communication/Plan
-
Continue IV antibiotics
Continue IV fluids
Doing better
Follow cultures
Appreciate Cnc Lathe Programmer recommendations
Assessment / Plan
Assessment / Plan
Physical Exam
General: Not in acute distress
HEENT: Other (Dry MM. )
Respiratory: Clear to Auscultation Bilaterally
Cardiac: S1/S2 and Tachycardia
GI: Soft, Non Tender, Non Distended and Normal Bowel Sounds
Musculoskeletal: No Cyanosis and No Edema
Neuro: AO x 3 and Nonfocal/grossly intact

Assessment/Plan
Patient is a 33y F with PMH significant for hypothyroidism, myasthenia and depression who presents to ED complaining of fevers / chills, N/V/D x 2 days.
Obstructing Right Ureteral Stone with mild left hydronephrosis
Right Pyelonephritis secondary to the above
Sepsis / Septic Shock secondary to the above
- Continue monitoring in ICU
- Patient presents with symptoms and imaging evidence consistent with R sided pyelonephritis and life threatening organ dysfunction as evidenced by hypotension and IRENE.
- IV abx with cefepime pending culture data (October culture was positive for hagan-senstive E coli).
- Aggressive IVF support +/- pressor support as needed to maintain perfusion.
- Supportive care with antipyretics, antiemetics, pain control, etc.
- Follow for clinical improvement.
- Appreciate Urology evaluation and urgent intervention: stent (cystoscopy, left stone manipulation, left double-J stent placement placed on December 31, 2023)
- Cnc Lathe Programmer consultation.
- Wean vasopressors as tolerated
IRENE likely post-renal
- SCr = 1.5 compared to baseline of 0.7.
- Likely secondary to above obstruction plus sepsis and hypotension.
- IVF / pressor support as noted above to maintain adequate perfusion.
- Follow for improvement in renal function.
Hypothyroidism
- Continue T4 supplementation.
Myasthenia Gravis
- Stable. No symptoms since 08/2023.
- Patient is s/p thymectomy and notes that her symptoms gradually resolved following this procedure.
- Not currently on any maintenance medications, etc.
- Monitor for any new symptoms, etc.
- Consider acute steroid therapy should any symptoms develop.
Microcytic Anemia
- Unclear etiology. No reported / specific blood loss, etc.
- Check iron studies, etc.
- Follow for changes post-operatively and with aggressive volume resuscitation.
Mild Hyponatremia
Mild Hypokalemia
- IVF support / electrolyte replacement.
- Follow for improvement and adjust fluids as needed.
DVT Prophylaxis: Heparin Subq
Code Status: Full
Anticipated Discharge: > 48 hours
Subjective/Interval History
-
Date of Service: January 01, 2024
Patient was seen and examined. She reported she felt much better than when she came in, and feels more alert as well. She ordered breakfast/lunch.
Objective Data
-
Labs:
Laboratory Results
01/01/24 01/01/24
04:42 15:30
WBC 15.4 H
Hgb 8.5 L 8.5 L
Hct 27.4 L
Plt Count 305
PT 19.5 H
INR 1.67
APTT 26.2
Sodium 136
Potassium 4.0
Chloride 113 H
Carbon Dioxide 14 L*
BUN 13
Creatinine 1.1 H
Glucose 143 H
Calcium 7.4 L D
Vital Signs:
Vital Signs
Temp Pulse Resp BP Pulse Ox
98.2 F 122 33 95/70 96
01/01/24 15:41 01/01/24 13:30 01/01/24 13:30 01/01/24 13:30 01/01/24 13:30
I&O
12/31/23 01/01/24 01/02/24
06:59 06:59 06:59
Intake Total 1082.5 / 1297.5 1547.6 / 1547.6
Output Total 2800 / 3300 1300 / 1300
Balance -1717.5 / -2002.5 247.6 / 247.6
--- NOTE | 2024-01-01 17:11 | CM ---
apartment maintenance manager reviewed patient's chart and met with patient and patient lives with her spouse and children in a 2 story home, patient is independent with adl's and ambulation, no dme, patient drives, home when stable no needs.
Pharmacy [facility]
PCP: [facility]
Plan; Home when stable, no needs.
[2024-01-01] MEDS: HEPARIN 5000 UNITS SC (20:07)
[2024-01-01] MEDS: EFFEXOR XR 150 MG PO (20:07)
[2024-01-01] MEDS: TYLENOL 650 MG PO (20:12)
--- NOTE | 2024-01-01 20:30 | PTCARENOTE ---
received patient. oriented x3, drowsy. c/o generalized fatigue, PRN tylenol given. ST on monitor. + pulses. on RA, lungs CTA, denies SOB. abdomen tender, denies pain. coelho intact, draining clear yellow urine. IVF infusing. pt repositions self. care
ongoing.
[2024-01-02] VITALS (9 sets, daily range): BP systolic 99–128; BP diastolic 60–99; BMI 32.7
[2024-01-02] MEDS: STERILE WATER FOR INJECTION 10 ML IV ×2 (00:14→14:02)
[2024-01-02] MEDS: MAXIPIME 2000 MG IV ×2 (00:14→14:01)
[2024-01-02] MEDS: LR 1000 IV (00:14)
--- NOTE | 2024-01-02 04:36 | PTCARENOTE ---
patient reassessed. systems unchanged. pt repositioning self. remains ST on monitor, denies pain, on RA. coelho draining adequate amount of clear yellow urine. coelho care done. AM labs sent. ice pack provided for complaints of puffiness around eyes.
care ongoing.
[2024-01-02 04:53] LABS: % Basophils 0.1 % (0-2); % Eosinophils 1.1 % (0-6); % Immature Granulocytes 0.8 % (0-0.5); % Lymphocytes 6.8 % (20.5-51.1); % Neutrophils 87.2 % (42.2-75.2); Absolute Eosinophils 0.1 10^3/uL (0-0.7); Absolute Immature Granulocytes 0.1 10^3/uL (0-0.05); Absolute Lymphocytes 0.6 10^3/uL (1.2-3.4); Absolute Monocytes 0.3 10^3/uL (0.1-0.6); Absolute Neutrophils 7.4 10^3/uL (1.4-6.5); Hematocrit 22.9 % (37.0-47.0); Hemoglobin 7.2 g/dL (12.0-16.0); Mean Corp Hgb Conc. 31.4 g/dL (33.0-37.0); Mean Corpuscular Hgb 22.7 pg (27.0-31.0); Mean Corpuscular Volume 72.2 fL (81.0-99.0); Mean Platelet Volume 9.1 fL (7.4-10.4); Nucleated Red Blood Cells % 0 %; Platelet Count 322 10^3/uL (130-400); Red Blood Cell Count 3.17 10^6/uL (4.20-5.40); White Blood Cell Count 8.5 10^3/uL (4.8-10.8)
--- NOTE | 2024-01-02 05:11 | DOWNTIME ---
There was a [employer] Client Shearing Shed Worker Downtime on 01/02/2024 from 0100 to 01/02/2024 at 0322. Downtime documentation of patient's care, including medication administrations, has been reconciled in the electronic record per guidelines. Refer to the
patient's paper chart under the miscellaneous tab to see printed paper medication records and downtime forms.
[2024-01-02 05:50] LABS: ALT (SGPT) 16 U/L (0-35); AST (SGOT) 17 U/L (14-36); Albumin 2.6 g/dl (3.5-5.0); Alkaline Phosphatase 63 U/L (38-126); Blood Urea Nitrogen 16 mg/dl (7-17); Calcium 8.3 mg/dl (8.4-10.2); Carbon Dioxide 22 mmol/L (22-30); Chloride 106 mmol/L (98-107); Estimated Creatinine Clearance 91 ml/min; Glucose 89 mg/dl (70-99); Magnesium 1.8 mg/dl (1.6-2.3); Potassium 4.1 mmol/L (3.5-5.1); Sodium 136 mmol/L (135-145); Total Bilirubin 0.3 mg/dl (0.2-1.3); Total Protein 5.2 g/dl (6.3-8.2); eGFR > 60.00
[2024-01-02] MEDS: SYNTHROID 75 MCG PO (07:06)
[2024-01-02] MEDS: HEPARIN 5000 UNITS SC ×3 (07:06→23:44)
--- NOTE | 2024-01-02 08:02 | PTCARENOTE ---
Patient received this am from study hall supervisor. Patient AAOx3, no reports of discomfort at this time. Lung sounds clear on RA. Patient assisted out of bed to chair, later ambulated to rest room to have a BM and perform morning hygiene. Patient assisted
with ordering morning breakfast, am medications administered per DEC.
--- NOTE | 2024-01-02 08:38 | W.PN.INTV ---
Today's Communication / Plan
Recommendations
Monitor HR with goal 60-100
Anxiolytics as needed
Psych consult placed
Up OOB as tolerated
Encourage IS (which is what I believe is causing her BB rales)
Continue ABx and can likely narrow tomorrow to rocephin as blood Cx show NGTD and her urine Cx has also showed NGTD
Pt is stable for downgrade out of ICU to IMU. Once HR improves then she could either be trx to tele or discharged home. I will consult psych as I believe her anxiety is mainly what is driving her tachycardia. Cardiology recs appreciated, of
course. Manager Underwriting/Pulmonary service will now sign off. Please re-consult if there are any additional questions/concerns, or if patient's respiratory status deteriorates.
Assessment
-
Assessment: 33-year-old F with PMHx of MG s/p thymectomy, and recurrent UTI who p/w fever, chills and general malaise for several days. She says that she has been on several different antibiotics since July 2023. 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
was prescribed Bactrim and a referral to urology was also given, however this was not going to be available until next month. Her chills continued and she had a fever yesterday to 103.8 �F. She was then advised to come to the hospital by a friend
who works here at [facility]. In the ER she was febrile to 102.4 �F, tachycardic to 155 bpm, breathing at 15 breaths/min, BP 115/80 and saturating 98% on room air. Unfortunately her blood pressure continued to drop and was in the 80s/40s
requiring vasopressors with Levophed. CT A/P shows 2.5mm obstructing calculus of proximal-mid left ureter with mild left hydronephrosis. Labs showed hyponatremia 131, hypokalemia to 3.4, IRENE with creatinine 1.5, lactate elevated at 3.5, total
bilirubin elevated at 1.4. Hb 9.6, platelets 378. Monoscreen was negative and COVID antigen was also negative. Patient was given 3 L total of IV fluids with NS 0.9%, as well as given vancomycin/Zosyn, ibuprofen and Tylenol. Urology was consulted
and patient was brought to OR on 12/31/2023 for cystoscopy with stone manipulation and JJ-stent placement. Pt TRX to ICU post-op due to hypotension on vasopressors.
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
Impression:
#Septic shock related to stone-related UTI (pyelonephritis) - shock state resolved
#Left ureteral 2.5 mm obstructive calculus with mild left hydronephrosis s/p cystoscopy with stone manipulation and JJ-stent placement (POD#2)
#Pyelonephritis due to left ureteral obstructive stone
#Tachycardia with occasional bradycardia- appears to be sinus (?SSS) (QTc 528ms on admission EKG, 404ms yesterday) - she also endorses anxiety, hence tachycardia could very well be psychiatric related
#Acute kidney injury due to postobstructive acidemia in the setting of shock
#Metabolic acidosis with normal anion gap - acidosis resolved
#Acute anemia on chronic anemia (baseline Hb 9.5-10g/dL - appears to have AOCD with low TIBC and normal ferritin)
#Hx of hagan-sensitive E. coli UTI (Oct 2023)
#Elevated total bilirubin with otherwise normal LFTs - T bili now normalized
Plan:
- Maintain MAP >65
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
- Patient continues to have bladder spasms � continue with Valium as needed
- Continue with IV antibiotics with cefepime (started 11/02/2023) and narrow ABx once cultures return and she is off vasopressors for >12-24 hrs - would ideally narrow to rocephin tomorrow - I presume she will need 10-14 days total of ABx
- Urology on board and recs appreciated --> no need to strain urine as per Dr. Cope - eventual outpatient follow up for ESWL
- Follow up infectious workup with blood and urine Cx
- Goal BG 140-180mg/dL
- Monitor Hb with serial H/H and transfuse if needed to keep Hb>7g/dL, keep plt>50k
- Monitor HR with goal 60-100
- Replete electrolytes with K>4, Mg>2
- Resume effexor; if cardiac workup non-revealing, then consider psych consult to address anxiety with possible link to tachycardia
- Continue LT4
- Pain control
- Anti-emetics as needed
- Nebulized bronchodilators as needed - pt not currently bronchospastic so will hold off
- stress ulcer ppx: n/a
- DVT ppx: continue HSQ 5000 units q12hr given her acute anemia (repeat H/H at 1229 shows stable Hb)
Dispo: Pt is stable for downgrade out of ICU to IMU. Once HR improves then she could either be trx to tele or discharged home. I will consult psych as I believe her anxiety is mainly what is driving her tachycardia. Cardiology recs appreciated,
of course. Manager Underwriting/Pulmonary service will now sign off. Thank you for allowing us to be involved in the care of this patient. Please re-consult if there are any additional questions/concerns, or if patient's respiratory status deteriorates.
Total time spent today was 56 minutes for this encounter. Time includes reviewing laboratory test/imaging results, reviewing pertinent medical records, obtaining and reviewing medical history, performing an appropriate exam, ordering medications,
tests and procedures. Time also includes documentation of this encounter, coordinating patient care and communicating with other healthcare professionals. Total time does not include separately billed tests performed on this date of service.
Data:
CXR 12-31-2023: No active cardiopulmonary disease.
CT Abd/Pelvis with IV contrast 12-31-2023:
1). There is a 2.5 mm obstructing calculus in the proximal-mid left ureter associated with mild left hydronephrosis, mild left perinephric edema and delayed function on the left. There is mild associated thickening of the wall of proximal left ureter
2). There is a 1 mm nonobstructing calculus in the lower pole of the right kidney
CTA Chest 12-31-2023: There is no pulmonary embolism
Subjective Dataa
Subjective Data
Date of Service:
Date of Service: January 02, 2024
Chief Complaint: Manager Underwriting Follow Up
Subjective:
Pt seen and evaluated this AM. She feels anxious today. Afebrile overnight. BP 107/82, off levophed since yesterday. She is still tachycardic although it is improved compared to yesterday. Heart rate in the 100�110s range. She says that her
throat hurts likely from the procedure when she was intubated. The scratchy throat is making her cough but she otherwise denies shortness of breath, chest pain, fevers or chills.
Review of Systems
General: Other (12 point ROS performed and is negative unless mentioned above.)
Objective Data
Data Reviewed
Vital Signs / I&O / Oxygen:
Vital Signs
Temp Pulse Resp BP Pulse Ox
98.6 F 115 25 107/82 95
01/02/24 07:23 01/02/24 06:00 01/02/24 06:00 01/02/24 06:00 01/02/24 06:00
Intake and Output
01/01/24 01/02/24 01/03/24
06:59 06:59 06:59
Intake Total 1082.5 / 1297.5 3867.6 / 3917.6 200 / 200
Output Total 2800 / 3300 2700 / 2850 300 / 300
Balance -1717.5 / -2002.5 1167.6 / 1067.6 -100 / -100
SaO2 95
Nasal Cannula flow liters per 2
minute
Physical Exam
General: Comfortable and Other (Anxious appearing at times)
HEENT: Normocephalic and Anicteric
Cardiovascular: Murmur (negative), Peripheral Edema (negative) and Other (Tachycardic)
Respiratory: Wheeze (negative), Crackles (Bibasilar) and Rhonchi (negative)
GI: Soft, Non Distended, Non Tender and Normal Bowel Sounds
Neurology: AO x 3 and Tremors (negative)
Skin: Warm and Dry
Labs/Micro/Reports
Lab Data
01/02/24 04:29
01/02/24 04:29
Microbiology
12/31/23 23:56 Urine Urine Culture - Final
NO GROWTH
12/31/23 18:23 Blood/Venous Blood Culture - Preliminary
No Growth in 24 hours- Final report to follow
12/31/23 17:48 Blood/Venous Blood Culture - Preliminary
No Growth in 24 hours- Final report to follow
12/31/23 17:48 Nasal Swab Influenza Types A & B (JENNIFER) - Final
Negative for Influenza A & B, NAAT
Negative results must be combined with clinical observations
and patient history.
Nucleic Acid Amplification test (NAAT)performed on the
[employer] platform.
--- NOTE | 2024-01-02 09:11 | W.PN.URO.CBU ---
Today's Communication / Plan
-
remove coelho expect frequeny urgency
Assessment / Plan
-
small but obstructing stoe with fever 102 and hypotension now stabilizing post stent plan as per hospitalist eventual outpatient tx of stone
Diagnosis
-
Date of Service: January 02, 2024
-
Patient Diagnosis:
Post Op Day:
Patient Diagnosis:
Post Op Day:
Patient Diagnosis:left obstructing stone with sepsis syndrome
Post Op Day:
Subjective
-
feeling better
Objective
-
Vital Signs
Temp Pulse Resp BP Pulse Ox
98.6 F 115 25 107/82 95
01/02/24 07:23 01/02/24 06:00 01/02/24 06:00 01/02/24 06:00 01/02/24 06:00
Intake and Output
01/01/24 01/02/24 01/03/24
06:59 06:59 06:59
Intake Total 1082.5 / 1297.5 3867.6 / 3917.6 200 / 200
Output Total 2800 / 3300 2700 / 2850 300 / 300
Balance -1717.5 / -2002.5 1167.6 / 1067.6 -100 / -100
Intake:
Oral fluids 1200 / 1250 100 / 100
IV fluids (Total) 1082.5 / 1297.5 2667.6 / 2667.6 100 / 100
Levophed 82.5 / 97.5 67.6 / 67.6
Lr 1,000 ml @ 100 mls/hr IV . 1000 / 1200 2600 / 2600 100 / 100
Q10H LULÚ Rx#:[id number]
Output:
Urine, Coelho 2800 / 3300 2700 / 2850 300 / 300
Laboratory Results
01/02/24 04:29
01/02/24 04:29
Review of Systems
-
: No Symptoms
Physical Exam
-
General - well developed, well nourished, no acute distress
Chest - clear bilaterally
Abdomen - soft, non-tender, positive bowel sounds, no CVAT, no incisional pain or distention
Genitalia - normal
Rectal - normal
Skin - warm & dry with no rash
Neuro - AOx3, no motor deficits
Extremities - no clubbing, no cyanosis, no edema
Incision - clean, dry
Dressing - clean, dry, intact
Care Review
Data Reviewed
Discussed with: Hospitalist and Nursing
[2024-01-02] MEDS: TYLENOL 650 MG PO ×3 (09:31→20:32)
[2024-01-02 12:37] LABS: Hemoglobin 7.9 g/dL (12.0-16.0)
--- NOTE | 2024-01-02 13:19 | CON.CAR ---
Addendum entered and electronically signed by Chilo Zambrano MD 01/02/24 14:13:
33 yo female with PMH of myasthenia gravis, admitted with obstructing urinary stone and septic shock. s/p stent, and receiving antibiotics. Feels better. We are consulted for persistent tachycardia. Exam with regular, tachy rhythm; no murmurs;
no edema. EKG and tele: sinus tachycardia. HR mostly 100-110s, some into 120s. CT PE: no PE.
Sinus tachycardia. BP stable. Likely multifactorial. Trend tele. Check echo for structural heart disease.
Original Note:
Consultation
Consultation Request
Date/Time Consultation Requested: 01/02/24 1026
Date/Time Consultation Performed: 01/02/24 1300
Requesting Provider: Dr. Bhakta
Performing Provider: Beth CARMONA for Dr. Zambrano
Reason for Consultation: concern for tachy-katharina syndrome
Medical History
-
Chief Complaint: UTI
History of Present Illness:
33 y/o female with recurrent UTI's, myasthenia gravis, hx thymectomy, hypothyroidism, brain cyst s/p surgery, thymectomy who presented with fever, chills, malaise and was admitted with septic shock (requiring fluids and vasopressors) related to UTI
and she was seen to have obstructing stone s/p stent. We are consulted since there was concern for tachy-katharina syndrome on the monitor. She is tachycardic, but I do not see any bradycardia. She can feel her heart racing mildly. Denies CP, SOB, or
syncope.
Past Medical History
Past Medical History: Hypothyroidism and Other (UTI's, MG, thymectomy, hypothyroidism, brain cyst s/p surgery, thymectomy)
Social History
Tobacco: Non-Smoker
Alcohol: Occasional
Family History
Family History: Reviewed & Not Pertinent
Allergies / Home Medications
Allergy/AdvReac Type Severity Reaction Status Date / Time
benzonatate Allergy Itching Verified 12/31/23 19:40
[From Mone Headley]
�Medication �Instructions �Recorded �Confirmed �Type
acetaminophen 325 mg tablet 650 mg PO Q4H PRN mild pain 12/31/23 12/31/23 History
(Tylenol)
levothyroxine 75 mcg tablet 75 mcg PO DAILY Thyroid 12/31/23 12/31/23 History
sulfamethoxazole 800 1 tab PO BID Infection 12/31/23 12/31/23 History
mg-trimethoprim 160 mg tablet
venlafaxine 150 mg 150 mg PO HS Mental Health/Anxiety 12/31/23 12/31/23 History
capsule,extended release 24 hr
Review of Systems
-
History Source: Patient
All other systems: Negative unless noted
Constitutional: Fever and Chills
Cardiac: Palpitations
Physical Exam
Vital Signs
Temp Pulse Resp BP Pulse Ox
98.4 F 115 25 107/82 95
01/02/24 11:02 01/02/24 06:00 01/02/24 06:00 01/02/24 06:00 01/02/24 06:00
Lab Results
01/02/24 12:29
01/02/24 04:29
Physical Exam
General: Well Developed, Well Nourished and No Apparent Distress
HEENT: Normocephalic and Anicteric
Respiratory: Clear and Non Labored Respirations
Cardiac: Regular Rhythm
Breast: Deferred by me
Skin: Warm and Dry
Neuro: AO x 3
Psych: Calm
Impression / Plan
-
Septic shock: improving
-s/p IVF and pressors- no longer on these
-patient with UTI/pyelonephritis/obstructing ureteral stone - now s/p stone manipulation and stent placement
-on abx, coelho d/c'd- has voided without difficulty
Tachycardia:
-patient with ST on monitor, I do not see any bradycardia on my review
-tachycardia is in setting of acute illness (infection, anemia)
-will check echo to ensure no cardiac abnormalities
Anemia:
-management per primary team
Hypothyroidism:
-TSH WNL
-on replacement therapy - continue
Data Reviewed
-
EKG: Tracing Personally Visualized and interpreted (sinus tachycardia 125 BPM)
CT Scan: Report Reviewed by me (abdomen/pelvis CT: 1). There is a 2.5 mm obstructing calculus in the proximal-mid left ureter associated with mild left hydronephrosis, mild left perinephric edema and delayed function on the left. also 1 mm
nonobstructing calculus)
Medical Tests (Nuc Med, Echo etc): Other (echo ordered and pending)
Labs: Labs Reviewed by me
--- NOTE | 2024-01-02 13:42 | CM ---
CM following re: discharge planning.
Discussed in Rounds, reviewed pt's chart. Per rounds meeting, pt is treating for left obstructing stone with sepsis syndrome. Urology following. Continue supportive care.
Pt is independent in all areas LAP REGULATOR, no after care VN services anticipated.
D/C plan: home with anticipated no needs. family to transport at discharge.
CM will follow with discharge plan updates as hospitalization progresses
[2024-01-02] MEDS: ANESTHETIC LOZENGE 1 LOZENGE PO (16:40)
--- NOTE | 2024-01-02 17:13 | W.PN.HOSP.TC ---
Today's Communication/Plan
-
Transfer to IMU
Continue antibiotics
Tachycardia eval
Assessment / Plan
Assessment / Plan
Physical Exam
General: Not in acute distress
HEENT: Other (Dry MM. )
Respiratory: Clear to Auscultation Bilaterally
Cardiac: S1/S2 and Tachycardia
GI: Soft, Non Tender, Non Distended and Normal Bowel Sounds
Musculoskeletal: No Cyanosis and No Edema
Neuro: AO x 3 and Nonfocal/grossly intact

Assessment/Plan
Patient is a 33y F with PMH significant for hypothyroidism, myasthenia and depression who presents to ED complaining of fevers / chills, N/V/D x 2 days.
Obstructing Right Ureteral Stone with mild left hydronephrosis
Right Pyelonephritis secondary to the above
Sepsis / Septic Shock secondary to the above
- Okay to transfer to IMU
- Weaned off Levophed since January 01, 2024
- Patient presents with symptoms and imaging evidence consistent with R sided pyelonephritis and life threatening organ dysfunction as evidenced by hypotension and IRENE.
- IV abx with cefepime pending culture data (October culture was positive for hagan-senstive E coli): possibly de-escalate to Rocephin on January 03, 2024
- Aggressive IVF support +/- pressor support as needed to maintain perfusion.
- Supportive care with antipyretics, antiemetics, pain control, etc.
- Follow for clinical improvement.
- Appreciate Urology evaluation and urgent intervention: stent (cystoscopy, left stone manipulation, left double-J stent placement placed on December 31, 2023)
- Child Development Teacher consultation.
- Wean vasopressors as tolerated
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
Tachycardia
-Cardiology consulted, recommendations appreciated
-Psych consult for tachycardia
-Echocardiogram
Bladder Spasms
-Continue Valium as needed
IRENE likely post-renal
- SCr = 1.5 compared to baseline of 0.7.
- Likely secondary to above obstruction plus sepsis and hypotension.
- IVF / pressor support as noted above to maintain adequate perfusion.
- Follow for improvement in renal function.
Hypothyroidism
- Continue T4 supplementation.
Myasthenia Gravis
- Stable. No symptoms since 08/2023.
- Patient is s/p thymectomy and notes that her symptoms gradually resolved following this procedure.
- Not currently on any maintenance medications, etc.
- Monitor for any new symptoms, etc.
- Consider acute steroid therapy should any symptoms develop.
Microcytic Anemia
- Unclear etiology. No reported / specific blood loss, etc.
- Check iron studies, etc.
- Follow for changes post-operatively and with aggressive volume resuscitation.
Mild Hyponatremia
Mild Hypokalemia
- IVF support / electrolyte replacement.
- Follow for improvement and adjust fluids as needed.
DVT Prophylaxis: Heparin Subq
Code Status: Full
Anticipated Discharge: 24 - 48 hours
Subjective/Interval History
-
Date of Service: January 02, 2024
Patient was seen and examined. She reported feeling dry but otherwise overall was feeling better. Still tachycardic.
Objective Data
-
Labs:
Laboratory Results
01/02/24 01/02/24
04:29 12:29
WBC 8.5
Hgb 7.2 L 7.9 L
Hct 22.9 L
Plt Count 322
Sodium 136
Potassium 4.1
Chloride 106
Carbon Dioxide 22
BUN 16
Creatinine 0.8
Glucose 89
Calcium 8.3 L
Total Bilirubin 0.3 D
AST 17
ALT 16
Alkaline Phosphatase 63
Vital Signs:
Vital Signs
Temp Pulse Resp BP Pulse Ox
98.7 F 115 25 107/82 95
01/02/24 15:03 01/02/24 06:00 01/02/24 06:00 01/02/24 06:00 01/02/24 06:00
I&O
01/01/24 01/02/24 01/03/24
06:59 06:59 06:59
Intake Total 1082.5 / 1297.5 3867.6 / 3917.6 1500 / 1500
Output Total 2800 / 3300 2700 / 2850 750 / 750
Balance -1717.5 / -2002.5 1167.6 / 1067.6 750 / 750
[2024-01-02] MEDS: EFFEXOR XR 150 MG PO (20:32)
--- NOTE | 2024-01-02 21:03 | PTCARENOTE ---
received PT from jerrica GARCIA. AAOx4 w/o complaints of pain, pt anxious. Sinus Tach 115-130's elevated temp VSS, RA 99% O2, GI &gu WNL, skin intact. IV sight CDI, PT transferred to 4721 @ 2054 full report given to accepting RN's
[2024-01-03] VITALS (13 sets, daily range): BP systolic 109–145; BP diastolic 79–110; BMI 32.5
--- NOTE | 2024-01-03 00:11 | PTCARENOTE ---
Pt TX to IMU from ICU. 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 Pt admitted to room and made comfortable. Pt AOA and agreeable to care. V/S stable, HR currently high 90's. Pt voiding independently without c/o burning or frequency. No acute changes at
this time. pt has call cerrato in reach. See RN shift assessment for head to toe.
[2024-01-03] MEDS: STERILE WATER FOR INJECTION 10 ML IV ×2 (01:34→14:30)
[2024-01-03] MEDS: MAXIPIME 2000 MG IV ×2 (01:34→14:31)
[2024-01-03 03:19] LABS: % Basophils 0.3 % (0-2); % Eosinophils 1.6 % (0-6); % Lymphocytes 15.4 % (20.5-51.1); % Monocytes 6.1 % (1.7-9.3); % Neutrophils 75.6 % (42.2-75.2); Absolute Eosinophils 0.1 10^3/uL (0-0.7); Absolute Immature Granulocytes 0.1 10^3/uL (0-0.05); Absolute Lymphocytes 1.1 10^3/uL (1.2-3.4); Absolute Monocytes 0.4 10^3/uL (0.1-0.6); Absolute Neutrophils 5.3 10^3/uL (1.4-6.5); Hematocrit 23.6 % (37.0-47.0); Hemoglobin 7.5 g/dL (12.0-16.0); Mean Corp Hgb Conc. 31.8 g/dL (33.0-37.0); Mean Corpuscular Hgb 22.7 pg (27.0-31.0); Mean Corpuscular Volume 71.3 fL (81.0-99.0); Mean Platelet Volume 8.9 fL (7.4-10.4); Nucleated Red Blood Cells % 0 %; Platelet Count 350 10^3/uL (130-400); Red Blood Cell Count 3.31 10^6/uL (4.20-5.40)
[2024-01-03 03:45] LABS: Blood Urea Nitrogen 16 mg/dl (7-17); Calcium 8.5 mg/dl (8.4-10.2); Carbon Dioxide 23 mmol/L (22-30); Chloride 105 mmol/L (98-107); Estimated Creatinine Clearance 91 ml/min; Glucose 89 mg/dl (70-99); Magnesium 1.6 mg/dl (1.6-2.3); Phosphorus 2.4 mg/dl (2.5-4.5); Sodium 137 mmol/L (135-145); eGFR > 60.00
[2024-01-03] MEDS: SYNTHROID 75 MCG PO (07:32)
[2024-01-03] MEDS: HEPARIN 5000 UNITS SC ×3 (09:32→23:17)
[2024-01-03] MEDS: MAGNESIUM SULFATE 102 GRAMS IV (10:13)
[2024-01-03] MEDS: FLUSH (NSS) 1 FLUSH IV ×2 (10:15→14:31)
[2024-01-03] MEDS: TYLENOL 650 MG PO (12:56)
--- NOTE | 2024-01-03 13:15 | W.PN.CD ---
Today's Communication / Plan
-
No specific treatment for sinus tach beyond: Treating the infection and evaluate and treat the anemia
Please call us back if needed
Impression / Plan
-
Sinus tach in the setting of infection and significant anemia
- Echo unremarkable
- Some ekg abnl are most likely from lead placement
- Tele just NSR and sinus tach
Infection, urologic
Significant anemia
Thyroid disease
Hx of myasthenia gravis
Physical Exam
Vital Signs/Labs
Vital Signs
Temp Pulse Resp BP Pulse Ox
100.1 F 117 17 137/96 96
01/03/24 11:24 01/03/24 10:14 01/03/24 10:14 01/03/24 10:14 01/03/24 12:28
01/02/24 01/03/24 01/04/24
06:59 06:59 06:59
Actual Weight 75.9 kg 75.5 kg
01/03/24 03:08
01/03/24 03:08
PT 19.5 Sec (11.4-14.6) H 01/01/24 04:42
INR 1.67 01/01/24 04:42
APTT 26.2 Sec (23.4-35.0) 01/01/24 04:42
Magnesium 1.6 mg/dl (1.6-2.3) 01/03/24 03:08
Physical Exam
Constitutional: No acute distress
Cardiovascular: Rhythm & rate is regular and Pedal edema is absent
Respiratory: Respiratory effort normal
Neuro/Psych: Alert
Data Reviewed
-
Date of Service: January 03, 2024
--- NOTE | 2024-01-03 15:28 | CON.MD ---
Consultation - Medical
-
patient seen chart reviewed. discussed w nursing. consult ordered as patient was rx for 'anxiety' not depression in her words. she does recall some years ago having 'slight ' depression but this not an issue in some time. she was started on
effexor by her pcp and the dose was slowly inc to current dose of 150 mg which she feels is very effective in alleviating her sx despite having a lot of stress in her life due to medical illnesses. she is also noted to have hx of inc hr which is
longstanding in nature. she recalls in PE classes when the kids would track their heart rate hers was always twenty beats higher than others although she cannot say it troubled her. she can enjoy herself. her appetite is 'too good' she has
hobbies and interests she enjoys. she has two kids and a who is very supportive. she complains of no ill effects from effexor although tachycardia can be an adverse effect she cannot personally relate this to starting and inc dose of
effexor.
past psych hx see above. she is not in therapy she has never been psych hosp. never had si or psychosis
fh anxiety grandfather was clinically depressed
medical hx patient here for recurrent uti w systemic sx. she was then found to have obstructive kidney stone which was removed surgically. she is undergoing workup now for tachycardia patient w hx myastenia gravis sx were much relieved by
thymectomy after using mestinon for some time. she also had removal of an epidermal cyst which was wrapped around facial nerves. she felt after brain surgery her life improved w faith of her normal voice timbre and weakness of facial muscles
which had been attributed to MG which is now considered to be in remission. hypothyroid overweight
substance abuse denied
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 mother in law and her father live with the family and are very supportive. has + friends supporgive h no hx sexual or physical trauma. mother is
supportive but lives two hours away. somewhat chaotic childhood given father not in her life but she is close to his family 'he's a 15 yo in a [age] year old body
mse alert ox3 cooperative and very pleasant speech and thought process nl mood is euthymic affect appropriate no si no hi no psychosis aver intell insight judgment good
dx unspec anxiety
recommendations while effexor can contribute to tachycardia, since it has helped her so much i would be loath to change it. asked her to talk to pcp if persistent tachycardia is an issue. the effexor can be decreased albeit very slowly while hr is
monitored and consideration given as to whether trying another antidep might be helpful but there is no guarantee you would get as good a result as she feels she has had w current medication. psych will sign off.
--- NOTE | 2024-01-03 15:40 | W.PN.HOSP.TC ---
Today's Communication/Plan
-
Antibiotics changed to oral antibiotics
Patient is doing better
Assessment / Plan
Assessment / Plan
Physical Exam
General: Not in acute distress
HEENT: Other (Dry MM. )
Respiratory: Clear to Auscultation Bilaterally
Cardiac: S1/S2 and Tachycardia
GI: Soft, Non Tender, Non Distended and Normal Bowel Sounds
Musculoskeletal: No Cyanosis and No Edema
Neuro: AAO x 3 and Nonfocal/grossly intact

Assessment/Plan
Patient is a 33y F with PMH significant for hypothyroidism, myasthenia and depression who presents to ED complaining of fevers / chills, N/V/D x 2 days.
Obstructing Right Ureteral Stone with mild left hydronephrosis
Right Pyelonephritis secondary to the above
Sepsis / Septic Shock secondary to the above
- Now in IMU doing better
- Weaned off Levophed since January 01, 2024
- Patient presents with symptoms and imaging evidence consistent with R sided pyelonephritis and life threatening organ dysfunction as evidenced by hypotension and IRENE.
- IV antibiotics with cefepime pending culture data (October culture was positive for hagan-senstive E coli): Cefuroxime 250mg BID to complete 10 day course of antibiotics.
- Supportive care with antipyretics, antiemetics, pain control, etc.
- Follow for clinical improvement.
- Appreciate Urology evaluation and urgent intervention: stent (cystoscopy, left stone manipulation, left double-J stent placement placed on December 31, 2023)
- Claim Trainee consultation recommendations appreciated
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
Tachycardia
-Cardiology consulted, recommendations appreciated
-Psych consult for tachycardia: Effexor could be contributing but should continue it for now, maybe can be decreased outpatient, but it has been working for her
-Echocardiogram
Bladder Spasms
-Continue Valium as needed
IRENE likely post-renal
- SCr = 1.5 compared to baseline of 0.7.
- Likely secondary to above obstruction plus sepsis and hypotension.
- IVF / pressor support as noted above to maintain adequate perfusion.
- Follow for improvement in renal function.
Hypothyroidism
- Continue T4 supplementation.
Myasthenia Gravis
- Stable. No symptoms since 08/2023.
- Patient is s/p thymectomy and notes that her symptoms gradually resolved following this procedure.
- Not currently on any maintenance medications, etc.
- Monitor for any new symptoms, etc.
- Consider acute steroid therapy should any symptoms develop.
Microcytic Anemia
- Unclear etiology. No reported / specific blood loss, etc.
- Check iron studies, etc.
- Follow for changes post-operatively and with aggressive volume resuscitation.
- Will consult hematology
Mild Hyponatremia
Mild Hypokalemia
- IVF support / electrolyte replacement.
- Follow for improvement and adjust fluids as needed.
DVT Prophylaxis: Heparin Subq
Code Status: Full
Anticipated Discharge: 24 - 48 hours
Subjective/Interval History
-
Date of Service: January 03, 2024
Patient was seen and examined. She reported feeling good, denied any new complaints.
Objective Data
-
Labs:
Laboratory Results
01/03/24
03:08
Sodium 137
Potassium 4.0
Chloride 105
Carbon Dioxide 23
BUN 16
Creatinine 0.8
Glucose 89
Calcium 8.5
Vital Signs:
Vital Signs
Temp Pulse Resp BP Pulse Ox
100.1 F 111 36 135/93 96
01/03/24 11:24 01/03/24 14:00 01/03/24 14:00 01/03/24 14:00 01/03/24 12:28
I&O
01/02/24 01/03/24 01/04/24
06:59 06:59 06:59
Intake Total 3867.6 / 3917.6 2049 462 / 462
Output Total 2700 / 2850 1100 / 1100
Balance 1167.6 / 1067.6 950 / 950 462 / 462
[2024-01-03] MEDS: EFFEXOR XR 150 MG PO (19:53)
[2024-01-03] MEDS: CEFTIN 250 MG PO (19:53)
--- NOTE | 2024-01-03 22:47 | PTCARENOTE ---
Received pt from previous shift. Pt ambulated to bathroom, voided, and preformed HS care. Pt V/S stable. Pt 99% on RA. Lungs clear throughout. No acute changes at this time. Pt agreeable and eager to wearing SCD's. Please see nursing shift
assessment for full head to toe.
[2024-01-04] VITALS (7 sets, daily range): BP systolic 119–142; BP diastolic 78–99; BMI 30.7
[2024-01-04] MEDS: SYNTHROID 75 MCG PO (05:47)
[2024-01-04 06:18] LABS: % Basophils 0.5 % (0-2); % Eosinophils 1.5 % (0-6); % Immature Granulocytes 5.2 % (0-0.5); % Lymphocytes 23.9 % (20.5-51.1); % Monocytes 8.6 % (1.7-9.3); % Neutrophils 60.3 % (42.2-75.2); Absolute Eosinophils 0.1 10^3/uL (0-0.7); Absolute Immature Granulocytes 0.3 10^3/uL (0-0.05); Absolute Lymphocytes 1.5 10^3/uL (1.2-3.4); Absolute Monocytes 0.5 10^3/uL (0.1-0.6); Absolute Neutrophils 3.7 10^3/uL (1.4-6.5); Hematocrit 27.1 % (37.0-47.0); Hemoglobin 8.7 g/dL (12.0-16.0); Mean Corp Hgb Conc. 32.1 g/dL (33.0-37.0); Mean Corpuscular Hgb 23.1 pg (27.0-31.0); Mean Corpuscular Volume 72.1 fL (81.0-99.0); Mean Platelet Volume 8.5 fL (7.4-10.4); Nucleated Red Blood Cells % 0 %; Platelet Count 386 10^3/uL (130-400); Red Blood Cell Count 3.76 10^6/uL (4.20-5.40); Red Cell Dist. Width 18.9 % (11.5-14.5); White Blood Cell Count 6.2 10^3/uL (4.8-10.8)
[2024-01-04 06:40] LABS: Blood Urea Nitrogen 13 mg/dl (7-17); Calcium 8.9 mg/dl (8.4-10.2); Carbon Dioxide 26 mmol/L (22-30); Chloride 102 mmol/L (98-107); Estimated Creatinine Clearance 118 ml/min; Glucose 85 mg/dl (70-99); Magnesium 1.8 mg/dl (1.6-2.3); Sodium 137 mmol/L (135-145); eGFR > 60.00
[2024-01-04] MEDS: TYLENOL 650 MG PO (08:04)
[2024-01-04] MEDS: HEPARIN 5000 UNITS SC (08:04)
[2024-01-04] MEDS: CEFTIN 250 MG PO (08:04)
--- NOTE | 2024-01-04 09:48 | W.PN.URO.CBU ---
Today's Communication / Plan
-
d/c when stable per cardiolog\\y and hospitalist will treat as ourptine thr offending stone end january
Assessment / Plan
-
small but obstructing stoe with fever 102 and hypotension now stabilizing post stent plan as per hospitalist eventual outpatient tx of stone
Diagnosis
-
Date of Service: January 04, 2024
-
Patient Diagnosis:
Post Op Day:
Patient Diagnosis:
Post Op Day:
Patient Diagnosis:
Post Op Day:
Patient Diagnosis:left obstructing stone with sepsis syndrome
Post Op Day:
Subjective
-
much imprioved
Objective
-
Vital Signs
Temp Pulse Resp BP Pulse Ox
98.2 F 95 25 142/98 99
01/04/24 07:22 01/04/24 08:03 01/04/24 08:03 01/04/24 08:03 01/03/24 20:56
Intake and Output
01/03/24 01/04/24 01/05/24
06:59 06:59 06:59
Intake Total 2049 / 2049 2397 / 2397
Output Total 1100 / 1100
Balance 950 / 950 2397 / 2397
Intake:
Oral fluids 1850 / 1850 2295 / 2295
IV fluids (Total) 200 / 200
Lr 1,000 ml @ 100 mls/hr IV . 200 / 200
Q10H LULÚ Rx#:[id number]
IV piggybacks 102 / 102
Output:
Urine, Mosher 750 / 750
Urine, Voided 350 / 350
Other:
Number of approximated MODERATE 2 4 1
amounts of urine
Number of approximated LARGE 2 2
amounts of urine
How many times incontinent 1
MODERATE amount urine
Laboratory Results
01/04/24 05:50
01/04/24 05:50
Review of Systems
-
: No Symptoms
Physical Exam
-
General - well developed, well nourished, no acute distress
Chest - clear bilaterally
Abdomen - soft, non-tender, positive bowel sounds, no CVAT, no incisional pain or distention
Genitalia - normal
Rectal - normal
Skin - warm & dry with no rash
Neuro - AOx3, no motor deficits
Extremities - no clubbing, no cyanosis, no edema
Incision - clean, dry
Dressing - clean, dry, intact
Counseling
-
no gu changes
Care Review
Data Reviewed
Discussed with: Nursing
--- NOTE | 2024-01-04 12:57 | W.PN.HOSP.TC ---
Today's Communication/Plan
-
Discharge today
Assessment / Plan
Assessment / Plan
Physical Exam
General: Not in acute distress
HEENT: Normocephalic
Respiratory: Clear to Auscultation Bilaterally
Cardiac: S1/S2 and Intermittent Tachycardia
GI: Soft, Non Tender, Non Distended and Normal Bowel Sounds
Musculoskeletal: No Cyanosis and No Edema
Neuro: AAO x 3 and Nonfocal/grossly intact

Assessment/Plan
Patient is a 33 y/o female with past medical history significant for hypothyroidism, myasthenia and depression who presents to ED complaining of fevers / chills, N/V/D x 2 days.
Obstructing Right Ureteral Stone with mild left hydronephrosis
Right Pyelonephritis secondary to the above
Sepsis / Septic Shock secondary to the above
- Now in IMU doing significantly better
- Weaned off Levophed since January 01, 2024
- Patient presented with symptoms and imaging evidence consistent with R sided pyelonephritis and life threatening organ dysfunction as evidenced by hypotension and IRENE.
- Status post IV antibiotics with cefepime pending culture data (October culture was positive for hagan-senstive E coli): now on Cefuroxime 250 mg BID to complete 10 day course of antibiotics --> will need 21 more
doses on discharge
- Supportive care with antipyretics, antiemetics, pain control, etc.
- Appreciate Urology evaluation and urgent intervention: stent (cystoscopy, left stone manipulation, left double-J stent placement placed on December 31, 2023)
- Technical Data Analyst consultation recommendations appreciated
- Follow-up with Dr. Cope urologist in about 1 to 2 weeks
Sinus Tachycardia
-Cardiology consulted, recommendations appreciated: treat anemia and treat infection
-Psych consult for tachycardia: Effexor could be contributing but should continue it for now, maybe can be decreased outpatient, but it has been working for her
-Echocardiogram completed
Bladder Spasms - RESOLVED
-Continue Valium as needed while inpatient
Acute Kidney Injury likely post-renal - RESOLVED
- SCr = 1.5 compared to baseline of 0.7 -- now improved
- Likely secondary to above obstruction plus sepsis and hypotension.
- IVF / pressor support as noted above to maintain adequate perfusion.
- Follow for improvement in renal function.
Hypothyroidism
- Continue T4 supplementation.
Myasthenia Gravis
- Stable. No symptoms since 08/2023.
- Patient is s/p thymectomy and notes that her symptoms gradually resolved following this procedure.
- Not currently on any maintenance medications, etc.
- Monitor for any new symptoms, etc.
- Consider acute steroid therapy should any symptoms develop.
Microcytic Anemia
- Unclear etiology. No reported / specific blood loss, etc.
- Follow for changes post-operatively and with aggressive volume resuscitation.
- Close Hematology follow-up outpatient
Mild Hyponatremia - RESOLVED
Mild Hypokalemia - RESOLVED
DVT Prophylaxis: Heparin Subq
Code Status: Full
More than 30 minutes spent in discharge including
Final examination of the patient
Summarizing hospital stay
Instructions for continuing care to all relevant caregivers
Preparation of discharge records, prescriptions, and referral forms
Total time spent (in minutes): 38
Anticipated Discharge: Today
Subjective/Interval History
-
Date of Service: January 04, 2024
Patient was seen and examined. She denied any new symptoms or any complaints. She mentioned that she really wants to be discharged today.
Objective Data
-
Labs:
Laboratory Results
01/04/24
05:50
WBC 6.2
Hgb 8.7 L
Hct 27.1 L
Plt Count 386
Sodium 137
Potassium 4.0
Chloride 102
Carbon Dioxide 26
BUN 13
Creatinine 0.6
Glucose 85
Calcium 8.9
Vital Signs:
Vital Signs
Temp Pulse Resp BP Pulse Ox
97.8 F 95 25 142/98 99
01/04/24 11:12 01/04/24 08:03 01/04/24 08:03 01/04/24 08:03 01/03/24 20:56
I&O
01/03/24 01/04/24 01/05/24
06:59 06:59 06:59
Intake Total 2049 2397 / 2397
Output Total 1100 / 1100
Balance 950 / 950 2397 / 2397
--- NOTE | 2024-01-04 13:51 | W.DS.TRANS ---
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
-
Discharge Instructions:
Discharge Diagnosis/Procedures Obstructing Right Ureteral Stone with mild left
hydronephrosis
Right Pyelonephritis secondary to the above
Sepsis / Septic Shock secondary to the above
Sinus Tachycardia
Bladder Spasms - RESOLVED
Acute Kidney Injury likely post-renal - RESOLVED
Hypothyroidism
Myasthenia Gravis
Microcytic Anemia
Mild Hyponatremia - RESOLVED
Mild Hypokalemia - RESOLVED
Diet As tolerated
Activity As tolerated
Blood Work Recheck CBC and CMP and Magnesium with your
primary care provider by Sunday January 07, 2024
Instructions: Cefuroxime
Stand-Alone Forms:
Changes to Home Medications: Yes
Discharge Medications:
DC Medications w/original date entered in [facility]
acetaminophen 325 mg tablet (Tylenol) 650 mg PO Q4H PRN mild pain 12/31/23
levothyroxine 75 mcg tablet 75 mcg PO DAILY Thyroid 12/31/23
sulfamethoxazole 800 mg-trimethoprim 160 mg tablet 1 tab PO BID Infection 12/31/23
venlafaxine 150 mg capsule,extended release 24 hr 150 mg PO HS Mental Health/Anxiety 12/31/23
cefuroxime axetil 250 mg tablet 250 mg PO BID #21 tabs 01/04/24
Home Medication Changes
Cefuroxime is a new medication.
Sulfamethoxazole is on hold to be reviewed by outpatient physicians about whether or not it should be continued/discontinued.
Pending Results: Yes
Additional Pending Results:
Final results of blood cultures from hospitalization
Total time spent discharging patient (in min): 38
--- NOTE | 2024-01-04 14:18 | CM ---
Spoke with patient who was preparing for discharge. The patient says she feels ready for discharge home today. Her mother in law will provide a ride home.
No CM d/c needs identified.
Plan home today.
--- NOTE | 2024-01-07 08:02 | W.DCSUMMARY ---
Discharge Summary
Discharge Data
Date of Admission: 12/31/23
Date of Discharge: 01/04/24
Total time spent discharging patient (in min): 38
-
Pending Results: Yes
Additional Pending Results:
Final results of blood cultures from hospitalization
Hospital Course
33 y/o female with past medical history significant for myasthenia gravis, brain mass and obesity who presented to the [facility] Emergency Department complaining of fevers/chills, myalgias and nausea/vomiting. Patient was admitted to the
intensive care unit with septic shock in the setting of left-sided pyelonephritis, imaging also showed an obstructing left ureteral stone and right-sided non-obstructing renal stone. Patient was also noted to have acute kidney injury. Urology was
consulted. On January 01, 2024, patient had a cystoscopy, left stone manipulation, left double-J stent placement for her proximal left ureteral stone with high-grade obstruction and sepsis syndrome. Patient was placed on intravenous antibiotics and
intravenous fluids, she was placed on vasopressors, which were later able to be weaned off. Patient did have tachycardia for which cardiology was consulted, their impression was likely from anemia and her acute illness. Psychiatry was also consulted
for possible anxiety and noted that she was on Effexor but Effexor was noted to have worked for the patient and recommendation was to keep Effexor going. Patient was soon stable for discharge to home.
Discharge Plan
-
Patient Disposition: Home (Routine Discharge)
Discharge Diagnosis/Procedures: Obstructing Right Ureteral Stone with mild left hydronephrosis
Right Pyelonephritis secondary to the above
Sepsis / Septic Shock secondary to the above
Sinus Tachycardia
Bladder Spasms - RESOLVED
Acute Kidney Injury likely post-renal - RESOLVED
Hypothyroidism
Myasthenia Gravis
Microcytic Anemia
Mild Hyponatremia - RESOLVED
Mild Hypokalemia - RESOLVED
Condition: Good
Diet: As tolerated
Activity: As tolerated
Blood Work: Recheck CBC and CMP and Magnesium with your primary care provider by Sunday January 07, 2024
Instructions: Cefuroxime
Referrals:
Maximino Cope MD [Active] - (you have a stent Expect frequency urgency and blood in urine call if fever call Dr Cope [phone] upon dischrge to set up dstone treatment by end january or if problems )
Amira Mak DO [Family Provider] - in three to four days
Additional Discharge Medication Instructions: Cefuroxime is a new medication.
Sulfamethoxazole is on hold to be reviewed by outpatient physicians about whether or not it should be continued/discontinued.
Prescriptions:
New
cefuroxime axetil 250 mg Tablet
250 mg PO BID Qty: 21 0RF
Continued
acetaminophen [Tylenol] 325 mg Tablet
650 mg PO Q4H PRN (Reason: mild pain)
venlafaxine 150 mg Capsule,Extended Release 24hr
150 mg PO HS
levothyroxine 75 mcg Tablet
75 mcg PO DAILY
Held
sulfamethoxazole-trimethoprim 800-160 mg Tablet
1 tab PO BID
Hold Instructions: Resume on 01/11/24. Discuss with your outpatient physicians if you actually need to continue to take this medication. Do not continue this medication unless your outpatient physicians say that you should continue it.
Patient Comments:
12/31/2023, pt. filled this med. on 12/31/2023 and is instructed to take one tablet BID for 7 days. Per pt., she took first dose today.
Discharge Orders:
Discharge Patient (As Directed); Ordered 01/04/24
Ordered By: Gene Serna
Discharge Date and Time
Discharge Date/Time: 01/04/24 15:00
Print Language: VINCENTIAN
== END 2024-01-04 15:00 | disposition home or self-care (01) | DRG 871 ==
LOC: IMU 23:08
PROVIDERS: Nurse Practitioner Primary Care; Physician Assistant; ADMITTING PHYSICIAN Hospitalist; ATTENDING PHYSICIAN Hospitalist; CONSULT PHYSICIAN Internal Medicine; CONSULT PHYSICIAN Internal Medicine Critical Care Medicine; CONSULT PHYSICIAN Psychiatry & Neurology Psychiatry; CONSULT PHYSICIAN Specialist; EMERGENCY PHYSICIAN Emergency Medicine; FAMILY PHYSICIAN Internal Medicine
DX: A41.9 Sepsis, unspecified organism (principal); R65.21 Severe sepsis with septic shock; N13.6 Pyonephrosis; N17.9 Acute kidney failure, unspecified; E87.1 Hypo-osmolality and hyponatremia; E66.9 Obesity, unspecified; G70.00 Myasthenia gravis without (acute) exacerbation; E87.6 Hypokalemia; E03.9 Hypothyroidism, unspecified; Z68.30 Body mass index [BMI] 30.0-30.9, adult
CPT/HCPCS: 71046; 71275; 74018; 74177; 76000; 80048; 80053; 81003; 81015; 82248; 82607; 82728; 83540; 83550; 83605; 83690; 83735; 84100; 84443; 85018; 85025; 85027; 85610; 85730; 86308; 87040; 87086; 87502; 87811; 93005; 93306; 96361; 96365; 96367; 96375; 99291; C2617; Q9967

== ENCOUNTER 2024-01-31 06:21 | Day surgery (SDC) | payer OTHER, SELFPAY ==
--- NOTE | 2024-01-25 10:56 | PTCARENOTE ---
INR 1.65 collected on 01/01/24; Sheree at 's office was notified.
--- NOTE | 2024-01-25 14:49 | PTCARENOTE ---
Addendum entered by Edith Lynne RN 01/25/24 14:52:
surgeon is aware.
Original Note:
Dr Hunter made aware of Abnormal EKG and HGB 8.7. stated he is probably ok, it's a low risk procedure.
[2024-01-31] VITALS (10 sets, daily range): BP systolic 133–142; BP diastolic 95–106; BMI 30.7
[2024-01-31] MEDS: NORMOSOL-R 1000 IV (09:48)
[2024-02-05 17:07] LABS: Stone Analysis Mass 3 mg
== END 2024-01-31 13:35 | disposition home or self-care (01) ==
LOC: SDS 06:21
PROVIDERS: ATTENDING PHYSICIAN Specialist
DX: N20.1 Calculus of ureter (principal); A41.9 Sepsis, unspecified organism
CPT/HCPCS: 52356; 74018; 76000; 82365; A4300; C1894; C2617; J1580

== ENCOUNTER 2024-02-01 15:16 | Inpatient (IN) | payer OTHER, SELFPAY ==
[2024-02-01] VITALS (9 sets, daily range): BP systolic 90–116; BP diastolic 51–67; BMI 31.2
--- NOTE | 2024-02-01 11:02 | ED.GENMED ---
History of Present Illness
General
Chief Complaint: Numbness
Source: patient
Exam Limitations: none
Time Seen by Provider: 02/01/24 10:39
Nursing documentation reviewed up to this point in time: agreed with
Travel History
Have you had any contact with someone who has COVID-19?: No
Do you have any symptoms of coronavirus? Fever > 100 degrees, chills, cough, shortness of breath, sore throat, loss of taste or smell, muscle aches, or headache?: No
History of Present Illness
History of Present Illness:
33-year-old female with past medical history of kidney stones recent stone removal yesterday with Dr. Cope felt somewhat febrile last night and chills but did not think much of it this morning had worsening fever and felt tingling to her hands
and feet and also noticed an elevated heart rate. This prompted her to come to the ER. She has been taking Bactrim at home
Past History
Past History
ED Past Medical History: Psychiatric (Anxiety) and Other (Myasthenia gravis); Negative Asthma, HTN, Hypercholesterolemia or NIDDM
ED Past Surgical History: (X 2) and Other (Epidermal cyst, Breast reduction, Brain cyst removed, thymectomy)
Social History
Tobacco: Non-smoker
Alcohol: Occasional
Personal:
Living: with family
Review of Systems
Review of Systems
Allergies reviewed?: Yes
All Other Systems: ROS reviewed and negative except as documented in HPI and ROS
Phy Exam
Physical Exam
Physical Exam:
GENERAL: Alert , in no apparent distress
EYE: pupils equal and reactive
NECK: Supple, no significant adenopathy.
ENT: o/p clr, mmm.
CARDIAC: Regular rate and rhythm .
LUNGS: Clear breath sounds bilaterally, no acute respiratory distress, no wheezes/rales/rhonchi
ABDOMEN: Soft, without focal tenderness, no r/g, no cvat
NEUROLOGICAL: Alert and oriented, no focal neuro deficits
SKIN: Warm and dry, skin intact.
MUSCULOSKELETAL: No edema, well perfused.
PSYCH: Normal and appropriate interaction.
Course
Orders/Labs/Results
Orders:
Orders
02/01/24 10:40
Electrocardiogram (*1) Stat
Reason for Study: Abdominal Pain
Cardiac Monitoring- Treatment ONCE
EKG- Treatment ONCE
Test Result ONCE
02/01/24 10:53
0.9% Sodium Chloride 1000 ml [Nss] 1,000 ml IV BOLUS
02/01/24 11:07
Complete Blood Count/With Diff Urgent
Comprehensive Metabolic Panel Urgent
HCG, Serum Qualitative Screen Urgent
Lactic Acid Urgent
Urinalysis Reflex To Culture Urgent
Date Specimen was Collected: 02/01/24
Time Specimen was Collected: 10:57
Urine Microscopic Reflex Cult Urgent
Urine Culture Urgent
DEMARCUS Source: U
Specimen Description:
Obtained by: Random
Date Specimen was Collected: 02/01/24
Time Specimen was Collected: 10:57
02/01/24 11:20
Blood Culture Q30M
DEMARCUS Source: Blood/Venous
Specimen Description:
Blood Culture Q30M
DEMARCUS Source: Blood/Venous
Specimen Description:
02/01/24 12:15
Cefepime HCl [Maxipime] 2,000 mg IV NOW STA
02/01/24 12:22
Sterile Water [Sterile Water For Injection] 20 ml .ROUTE .STK-MED
02/01/24 15:00
Lactate Level [Lactic Acid] Urgent
Abnormal Lab Results
02/01/24
11:07
Hgb 10.2 L g/dL
(12.0-16.0)
Hct 32.2 L %
(37.0-47.0)
MCV 71.7 L fL
(81.0-99.0)
MCH 22.7 L pg
(27.0-31.0)
MCHC 31.7 L g/dL
(33.0-37.0)
RDW 17.7 H %
(11.5-14.5)
Absolute Neuts (auto) 9.0 H 10^3/uL
(1.4-6.5)
Absolute Lymphs (auto) 0.2 L 10^3/uL
(1.2-3.4)
Neutrophils % 94.3 H %
(42.2-75.2)
Lymphocytes % 1.9 L %
(20.5-51.1)
Sodium 133 L mmol/L
(135-145)
Carbon Dioxide 18 L mmol/L
(22-30)
BUN 21 H mg/dl
(7-17)
Creatinine 1.4 H mg/dL
(0.6-1.0)
Glucose 120 H mg/dl
(70-99)
Lactic Acid 3.6 H mmol/L
(0.7-2.0)
AST 59 H U/L
(14-36)
ALT 39 H U/L
(0-35)
Urine Ketones Trace A
(Negative)
Ur Occult Blood Reflex 4+ A
(Negative)
Urine Bilirubin 1+ A
(Negative)
Leukocyte Esterase Rfl 2+ A
(Negative)
Urine RBC 40-50 A /HPF
(0-2)
Urine WBC (Reflex) 26-30 A /HPF
(0-5)
Urine Bacteria (Reflex) Few A
(Negative)
Urine Albumin (Reflex) 2+ A
(Neg - Trace)
02/01/24 11:07
02/01/24 11:07
Vital Signs
Initial and Last Documented VS:
Initial Vital Signs
Temp Pulse Resp BP Pulse Ox
99.4 F 146 20 90/51 100
02/01/24 10:22 02/01/24 10:22 02/01/24 10:22 02/01/24 10:22 02/01/24 10:22
Last Documented Vital Signs
Temp Pulse Resp BP Pulse Ox
99.4 F 147 32 101/53 100
02/01/24 10:22 02/01/24 13:00 02/01/24 13:00 02/01/24 13:00 02/01/24 13:00
MDM/Problems Addressed
MDM/Problems Addressed:
33-year-old female presenting to the emergency department today with concerns of subjective fever chills some intermittent left flank pain as well as tingling to her hands and feet bilaterally worsening last night had stone removal yesterday by
urology. On arrival here pulse rate in 140s blood pressure in the 90s systolic temperature of 99.4. Lactic acid elevated to 3.6 heart rate still elevated patient was given a liter fluid as well as started on antibiotics concern for sepsis plan to
admit for further treatment and monitoring.
*Critical Care Note
Total Time (30-74mins, 75-104mins- exclusive of procedures): Not Applicable
ED Attending Note
-
Portions of this chart may have been created with voice recognition software.� Occasional wrong word or��sound alike� substitutions may have occurred due to the inherent limitations of voice recognition software.
Discharge Plan
Departure
Patient Disposition: Admit
Date of Disposition: 02/01/24
Time of Disposition: 13:02
Admit to: Med/Surg
Admit to doctor: Kan
Presentation/result/management discussed w/ accepting MD/DO: Hospitalist
Patient with high blood pressure during this ER visit?: No
Condition: Good
Covid-19: Not Applicable
Discharge Problem:
Sepsis, UTI (urinary tract infection)
Prescriptions:
No Action
acetaminophen [Tylenol] 325 mg Tablet
650 mg PO Q4H PRN (Reason: mild pain)
venlafaxine 150 mg Capsule,Extended Release 24hr
150 mg PO HS
levothyroxine 75 mcg Tablet
75 mcg PO DAILY
Referrals:
Edmund Fox, DO [Family Provider] -
Interventions
Interventions:
*Risk Screen - Suicide Last Done: 02/01/24 11:13
*General Assessment Last Done: 02/01/24 11:14
*Neglect/Abuse Screening Last Done: 02/01/24 11:13
ED- Fall Risk Assessment Last Done: 02/01/24 11:13
*ED COVID-19 Vaccine History Last Done: 02/01/24 10:22
ED- Neurological Assessment Last Done: 02/01/24 11:16
Discharge Date and Time
Print Language: DUTCH
[2024-02-01] MEDS: NSS 1000 IV ×2 (11:20→13:09)
[2024-02-01 11:22] LABS: Urine Albumin 2+ (Neg - Trace); Urine Bilirubin 1+ (Negative); Urine Character Slightly Cloudy (Clear); Urine Color Yellow; Urine Glucose Negative (Negative); Urine Ketone Trace (Negative); Urine Leukocyte 2+ (Negative); Urine Nitrite Negative (Negative); Urine Occult Blood 4+ (Negative); Urine Urobilinogen Negative (Neg - 1+)
[2024-02-01 11:23] LABS: % Basophils 0.2 % (0-2); % Eosinophils 1.2 % (0-6); % Immature Granulocytes 0.4 % (0-0.5); % Lymphocytes 1.9 % (20.5-51.1); % Neutrophils 94.3 % (42.2-75.2); Absolute Eosinophils 0.1 10^3/uL (0-0.7); Absolute Lymphocytes 0.2 10^3/uL (1.2-3.4); Absolute Monocytes 0.2 10^3/uL (0.1-0.6); Hematocrit 32.2 % (37.0-47.0); Hemoglobin 10.2 g/dL (12.0-16.0); Mean Corp Hgb Conc. 31.7 g/dL (33.0-37.0); Mean Corpuscular Hgb 22.7 pg (27.0-31.0); Mean Corpuscular Volume 71.7 fL (81.0-99.0); Mean Platelet Volume 9.1 fL (7.4-10.4); Nucleated Red Blood Cells % 0 %; Platelet Count 326 10^3/uL (130-400); Red Blood Cell Count 4.49 10^6/uL (4.20-5.40); Red Cell Dist. Width 17.7 % (11.5-14.5); White Blood Cell Count 9.5 10^3/uL (4.8-10.8)
[2024-02-01 11:38] LABS: Urine Red Blood Cell 40-50 /HPF (0-2); Urine White Cell 26-30 /HPF (0-5)
[2024-02-01 11:39] LABS: Urine Bacteria Few (Negative); Urine Mucus Few
[2024-02-01 11:45] LABS: HCG, Serum Qualitative Screen Negative
[2024-02-01 11:49] LABS: ALT (SGPT) 39 U/L (0-35); AST (SGOT) 59 U/L (14-36); Albumin 4.1 g/dl (3.5-5.0); Alkaline Phosphatase 82 U/L (38-126); Blood Urea Nitrogen 21 mg/dl (7-17); Calcium 9.5 mg/dl (8.4-10.2); Carbon Dioxide 18 mmol/L (22-30); Chloride 103 mmol/L (98-107); Estimated Creatinine Clearance 51 ml/min; Glucose 120 mg/dl (70-99); Potassium 4.1 mmol/L (3.5-5.1); Sodium 133 mmol/L (135-145); Total Bilirubin 0.7 mg/dl (0.2-1.3); Total Protein 7.3 g/dl (6.3-8.2); eGFR 50.95
[2024-02-01 11:59] LABS: Lactic Acid 3.6 mmol/L (0.7-2.0)
[2024-02-01] MEDS: MAXIPIME 2000 MG IV (12:24)
--- NOTE | 2024-02-01 13:37 | PHANOTE ---
02/01/2024, med rec tech, pt. was prescribed and filled Bactrim DS (800-160 mg) on 01/31/2024 and instructed to take one tablet BID for 3 days; however, pt. states that after having her first dose of this med. last night she developed pink rashes
all over her body and has since stopped taking.
[2024-02-01] MEDS: LR 1000 IV ×3 (14:56→23:24)
[2024-02-01 15:19] LABS: Lactic Acid 2.2 mmol/L (0.7-2.0)
[2024-02-01] MEDS: TYLENOL 650 MG PO ×2 (15:24→20:54)
--- NOTE | 2024-02-01 16:11 | HPS.HSE ---
Family Physician
-
Family Physician: Edmund Fox
Chief Complaint
-
fevers, pain
History of Present Illness
33-year-old female with history of nephrolithiasis with recent stone removal And stent exchange yesterday 01/[address] Cope now presenting for febrile episode last night associated with chills and worsening fever this morning. Associated with
tingling to her hands and feet. Noticed with elevated heart rate. Of note has been taking Bactrim at home after yesterdays procedure. Upon last admission, patient obstructing right ureteral stone with mild left hydronephrosis and pyelonephritis
and therefore being treated for septic shock. Of note, has had sinus tachycardia due to recent episode in the past in setting of infection, with no evidence of structural abnormality on echo. Further this could be secondary to Effexor, follow-up
with psychiatry as outpatient. Patient febrile at 101.9 Fahrenheit temperature, pulse 141, blood pressure 104/61, respiratory 26. Labs remarkable for sodium 133, creatinine 1.4 (0.6- 1 month ago), lactate 3.6, 2.2 after resuscitation, TSH pending,
UA positive.
Medical History
Past Medical History
Past Medical History: Reports Other
Additional Past Medical History:
Myasthenia Gravis (last episode was 08/2023)
Hypothyroidism
Epidermoid Cyst R Occipital Region
Anxiety / Depression
Obesity
Past Surgical History: Reports Other
Additional Past Surgical History:
Right Occipital Epidermoid Cyst Excision
Breast Reduction
x 2
Thymectomy
Social History
Tobacco: Non-smoker
Alcohol: Occasional
Drug: None
Personal:
Living: With Family
Family History
Family History: Other (Mother: HTN)
Allergies / Home Medications
Allergies reflects when Allergies were last updated in [facility].
Home Medications with original date entered in [facility]
Allergy/Medication List:
Allergies
Allergy/AdvReac Type Severity Reaction Status Date / Time
benzonatate Allergy Itching/whole Verified 02/01/24 10:23
[From Tessalmarlene Perlanaly] body rash
sulfamethoxazole Allergy redness Verified 02/01/24 13:26
[From Bactrim] all over
body,
itching on
hands
trimethoprim [From Bactrim] Allergy redness Verified 02/01/24 13:26
all over
body,
itching on
hands
Home Medications
levothyroxine 75 mcg tablet 75 mcg PO DAILY Thyroid 12/31/23
venlafaxine 150 mg capsule,extended release 24 hr 150 mg PO HS Mental Health/Anxiety 12/31/23
acetaminophen 500 mg tablet (Tylenol Extra Strength) 1,000 mg PO DAILYPRN PRN mild pain 02/01/24
Review of Systems
-
History Source: Patient
A 12 point ROS was completed and negative except as noted: Yes
Physical Exam
Vital Signs
Vital Signs
Temp Pulse Resp BP Pulse Ox
101.9 F H 141 26 104/61 100
02/01/24 15:19 02/01/24 15:00 02/01/24 15:00 02/01/24 15:00 02/01/24 15:00
Physical Exam
General: Other (resting comfortably)
HEENT: Other
Respiratory: Clear; No Wheezes, Rales or Rhonchi
Cardiac: S1/S2 and Tachycardia; No Murmur
GI: Soft, Non Tender, Non Distended and Normal Bowel Sounds
Musculoskeletal: No Clubbing, No Cyanosis and No Edema
Skin: Warm and Dry
Neuro: Awake, Alert, Oriented, AO x 3 and Nonfocal/grossly intact
Psych: Calm
Laboratory Results
-
02/01/24 11:07
02/01/24 11:07
Laboratory Results
Lactic Acid 2.2 mmol/L (0.7-2.0) H 02/01/24 14:55
Total Bilirubin 0.7 mg/dl (0.2-1.3) 02/01/24 11:07
AST 59 U/L (14-36) H 02/01/24 11:07
ALT 39 U/L (0-35) H 02/01/24 11:07
Alkaline Phosphatase 82 U/L (38-126) 02/01/24 11:07
Data Reviewed
-
Lab Data: Labs Reviewed by me
Impression/Plan
-
IMPRESSION:
33-year-old female with history of nephrolithiasis with recent stone removal And stent exchange yesterday 01/[address] Cope now presenting for febrile episode last night associated with chills and worsening fever this morning.
PLAN:
#Severe sepsis
� Most likely secondary to urinary source versus reaction to Bactrim
� Status post stent exchange 01/30
� Receive gentamicin Levaquin perioperative
� Previous culture sensitive to ceftriaxone, can continue
� IV fluids
� Broaden antibiotics if decompensating
� Follow-up cultures including blood and urine
� Ensure MAP greater than 65
� Monitor lactate to ensure under 2
#Hyponatremia
� Most likely secondary to hypovolemia, sepsis
� Monitor with resuscitation
#IRENE
� Continue to monitor with IV fluids
#Transaminitis
� Most likely secondary to sepsis
� Continue to monitor
#Hypothyroidism
� Follow-up TSH
#History of sinus tach
� Worsened with sepsis
� Continue to monitor�follow-up outpatient with psychiatry, PCP
Myasthenia gravis
� Status post thymectomy next�continue resuscitation
#Anemia
� Chronic
- No evidence of blood loss
� Continue to follow-up outpatient
#DVT prophylaxis
� HSQ
[2024-02-01 17:08] LABS: TSH Reflex To Free T4 2.28 uIU/ml (0.47-4.68)
[2024-02-01] MEDS: LR 500 IV (17:21)
[2024-02-01] MEDS: HEPARIN 5000 UNITS SC ×2 (17:27→23:24)
[2024-02-01 18:20] LABS: Lactic Acid 2.8 mmol/L (0.7-2.0)
[2024-02-01] MEDS: STERILE WATER FOR INJECTION 10 ML IV (20:53)
[2024-02-01] MEDS: EFFEXOR XR 150 MG PO (20:53)
[2024-02-01] MEDS: ROCEPHIN 1000 MG IV (20:54)
[2024-02-01] MEDS: FLUSH (NSS) 1 FLUSH IV ×2 (20:54)
--- NOTE | 2024-02-01 22:45 | PTCARENOTE ---
Dayshift RN informed this RN pt tachycardic throughout day. HR elevated, 120's to 130's. Respirations increased. Pt PHAM. Pt complained of body aches, pain medication provided, see [facility]. MATHEW made aware, no new orders provided.
[2024-02-02] MEDS: TYLENOL 650 MG PO ×2 (02:56→20:29)
[2024-02-02 03:05] VITALS: BP 104/69
[2024-02-02] MEDS: SYNTHROID 75 MCG PO (06:09)
[2024-02-02 07:00] VITALS: BP 117/80
[2024-02-02 08:46] LABS: Hematocrit 26.9 % (37.0-47.0); Hemoglobin 8.3 g/dL (12.0-16.0); Mean Corp Hgb Conc. 30.9 g/dL (33.0-37.0); Mean Corpuscular Hgb 22.1 pg (27.0-31.0); Mean Corpuscular Volume 71.7 fL (81.0-99.0); Mean Platelet Volume 9.6 fL (7.4-10.4); Platelet Count 274 10^3/uL (130-400); Red Blood Cell Count 3.75 10^6/uL (4.20-5.40); Red Cell Dist. Width 18.1 % (11.5-14.5)
[2024-02-02] MEDS: HEPARIN 5000 UNITS SC ×3 (08:53→23:06)
[2024-02-02] MEDS: LR 1000 IV ×2 (09:24→20:30)
[2024-02-02 09:29] LABS: Blood Urea Nitrogen 14 mg/dl (7-17); Calcium 8.6 mg/dl (8.4-10.2); Carbon Dioxide 21 mmol/L (22-30); Chloride 108 mmol/L (98-107); Estimated Creatinine Clearance 102 ml/min; Glucose 97 mg/dl (70-99); Potassium 4.2 mmol/L (3.5-5.1); Sodium 133 mmol/L (135-145); eGFR > 60.00
--- NOTE | 2024-02-02 09:53 | CONS.URO ---
Consultation
-
Date/Time Consultation Performed: 02/01 945
Performing Provider: Douglas
Reason for Consultation: Left Pyelonephritis
Medical History
History of Present Illness
Chronic left E. coli pyelonephritis since October
complicated by partially obstructing left ureteral requiring urgent ureteral stenting on 01/01/[address] Cope to alleviate obstruction
on 02/01/24 Dr Cope returned pt to OR to remove stone and replace stent
she developed signs of systemic infection --> ED --> admitted to hospitalists'
Past Medical History
Past Medical History: Other (Myasthenia Gravis (last episode was 08/2023) Hypothyroidism Epidermoid Cyst R Occipital Region Anxiety / Depression Obesity)
Past Surgical History: Other (Right Occipital Epidermoid Cyst Excision Breast Reduction x 2 Thymectomy, Left Pyelonephritis requiring emergent left ureteral stenting on 12/03/23)
Allergies/Home Medications
Allergies
Allergy/AdvReac Type Severity Reaction Status Date / Time
benzonatate Allergy Itching/whole Verified 02/01/24 10:23
[From Tessalon Perles] body rash
sulfamethoxazole Allergy redness Verified 02/01/24 13:26
[From Bactrim] all over
body,
itching on
hands
trimethoprim [From Bactrim] Allergy redness Verified 02/01/24 13:26
all over
body,
itching on
hands
Home Medications
�Medication �Instructions �Recorded �Confirmed �Type
levothyroxine 75 mcg tablet 75 mcg PO DAILY Thyroid 12/31/23 02/01/24 History
venlafaxine 150 mg 150 mg PO HS Mental Health/Anxiety 12/31/23 02/01/24 History
capsule,extended release 24 hr
acetaminophen 500 mg tablet 1,000 mg PO DAILYPRN PRN mild pain 02/01/24 02/01/24 History
(Tylenol Extra Strength)
Physical Exam
Vital Signs
Vital Signs
Temp Pulse Resp BP Pulse Ox
98.6 F 125 15 117/80 100
02/02/24 07:00 02/02/24 07:00 02/02/24 07:00 02/02/24 07:00 02/02/24 07:00
Lab / Testing Results
Laboratory Results
02/02/24 08:16
02/02/24 08:16
Physical Exam
adult female who appears tired
General: No Apparent Distress
GI: Soft
Skin: Warm
Neuro: Awake, Alert and Oriented
Psych: Calm
Assessment / Plan
-
persistent left pyelonephritis s/p removal of stone
the left ureteral stent is in proper position
Rec: tx pyelo; outpatient removal of stent by Dr Cope after infection has bated
Data Reviewed
-
Diagnostic Radiology: Image personally visualized and interpreted (KUB)
Lab Data: Labs Reviewed
Old Records: Reviewed
[2024-02-02 11:00] VITALS: BP 117/84
--- NOTE | 2024-02-02 11:26 | CM ---
Met with patient at bedside; initial assessment completed
Patient reported she lives in a multilevel home with spouse and [id number]; 0 steps in; 14-15 steps between floors; railings present; master bedroom and bath on the 1st floor; bath has walk-in shower w/ bench
PLOF: patient reported she is independent with ambulation, stairs, and ADLs; drives
DME: none
Transportation: or [id number] will provide ride home
SNF/Rehab/Home Health utilization history: none
Plan: discharge to home; no needs anticipated
--- NOTE | 2024-02-02 12:06 | W.PN.HOSP.TC ---
Today's Communication/Plan
-
cont iv abx
f/u cultures
ivf
Assessment / Plan
Assessment / Plan
Physical Exam
General: Other (resting comfortably)
HEENT: Other
Respiratory: Clear; No Wheezes, Rales or Rhonchi
Cardiac: S1/S2 and Tachycardia; No Murmur
GI: Soft, Non Tender, Non Distended and Normal Bowel Sounds
Musculoskeletal: No Clubbing, No Cyanosis and No Edema
Skin: Warm and Dry
Neuro: Awake, Alert, Oriented, AO x 3 and Nonfocal/grossly intact
Psych: Calm
33-year-old female with history of nephrolithiasis with recent stone removal And stent exchange yesterday 01/[address] Cope now presenting for febrile episode last night associated with chills and worsening fever this morning.
PLAN:
#Severe sepsis
# Persistent pyelonephritis status post removal of stone
� Clinical signs of improvement
� Status post stent exchange 01/30
� Previous culture sensitive to ceftriaxone, can continue
� IV fluids
� Follow-up cultures including blood and urine
�Left ureteral stent is in proper position as per urology
� Outpatient stent removal after infection has improved
#Hyponatremia
� Most likely secondary to hypovolemia, sepsis
� Monitor with resuscitation
#IRENE
� Continue to monitor with IV fluids
-resolved
#Transaminitis
� Most likely secondary to sepsis
� Continue to monitor
#Hypothyroidism
� Follow-up TSH
#History of sinus tach
� Worsened with sepsis, now improving
� Continue to monitor�follow-up outpatient with psychiatry, PCP
- as per pt - no changes from psychiatry after review of meds/HR
Myasthenia gravis
� Status post thymectomy next�continue resuscitation
#Anemia
� Chronic
- No evidence of blood loss
� Continue to follow-up outpatient
#DVT prophylaxis
� HSQ
Anticipated Discharge: 24 - 48 hours
Subjective/Interval History
-
Date of Service: February 02, 2024
Feeling better today
Objective Data
-
Labs:
Laboratory Results
02/02/24
08:16
WBC 5.0
Hgb 8.3 L
Hct 26.9 L
Plt Count 274
Sodium 133 L
Potassium 4.2
Chloride 108 H
Carbon Dioxide 21 L
BUN 14
Creatinine 0.7
Glucose 97
Calcium 8.6
Vital Signs:
Vital Signs
Temp Pulse Resp BP Pulse Ox
98.2 F 116 16 117/84 100
02/02/24 11:00 02/02/24 11:00 02/02/24 11:00 02/02/24 11:00 02/02/24 11:00
I&O
02/01/24 02/02/24 02/03/24
06:59 06:59 06:59
Intake Total 1440 / 1440
Balance 1440 / 1440
Review of Systems
-
History Source: Patient
All other systems: Not reviewed unless documented
Data Reviewed
-
Labs: Labs Reviewed by me
[2024-02-02 15:00] VITALS: BP 127/95
[2024-02-02 20:26] VITALS: BP 125/88
[2024-02-02] MEDS: ROCEPHIN 1000 MG IV (20:29)
[2024-02-02] MEDS: FLUSH (NSS) 1 FLUSH IV ×2 (20:29→20:30)
[2024-02-02] MEDS: STERILE WATER FOR INJECTION 10 ML IV (20:29)
[2024-02-02] MEDS: EFFEXOR XR 150 MG PO (20:30)
[2024-02-02 23:18] VITALS: BP 109/79
[2024-02-03 03:22] VITALS: BP 115/86
[2024-02-03] MEDS: SYNTHROID 75 MCG PO (05:53)
[2024-02-03] MEDS: LR 1000 IV (05:55)
[2024-02-03 07:00] VITALS: BP 127/95
--- NOTE | 2024-02-03 07:06 | W.PN.URO.CBU ---
Today's Communication / Plan
-
though current urine cx shows low-volume strep, would recommend outpatient oral antibiotic x 14 days that covers both E. coli and strep
Assessment / Plan
-
relapsing, chronic pyelo s/p stone removal
Diagnosis
-
Date of Service: February 03, 2024
-
Chronic left E. coli pyelonephritis since October
complicated by partially obstructing left ureteral requiring urgent ureteral stenting on 01/01/[address] Cope to alleviate obstruction
on 02/01/24 Dr Cope returned pt to OR to remove stone and replace stent
she developed signs of systemic infection --> ED --> admitted to hospitalists'
Subjective
-
'better'
Objective
-
Vital Signs
Temp Pulse Resp BP Pulse Ox
97.8 F 107 17 115/86 98
02/03/24 03:22 02/03/24 03:22 02/03/24 03:22 02/03/24 03:22 02/03/24 03:22
Intake and Output
02/02/24 02/03/24 02/04/24
06:59 06:59 06:59
Intake Total 1440 / 1440 1340 / 1340
Balance 1440 / 1440 1340 / 1340
Intake:
Oral fluids 240 / 240 1340 / 1340
IV fluids (Total) 1200 / 1200
Other:
Number of approximated SMALL 1
amounts of urine
Number of approximated MODERATE 5 4
amounts of urine
Number of approximated LARGE 1
amounts of urine
urine is growing strep
Physical Exam
-
General - well developed, well nourished, no acute distress
Chest - clear bilaterally
Abdomen - soft, non-tender, positive bowel sounds, no CVAT, no incisional pain or distention
Genitalia - normal
Rectal - normal
Skin - warm & dry with no rash
Neuro - AOx3, no motor deficits
Extremities - no clubbing, no cyanosis, no edema
Incision - clean, dry
Dressing - clean, dry, intact
[2024-02-03] MEDS: HEPARIN 5000 UNITS SC (07:25)
[2024-02-03 09:03] LABS: ALT (SGPT) 26 U/L (0-35); AST (SGOT) 24 U/L (14-36); Albumin 3.2 g/dl (3.5-5.0); Alkaline Phosphatase 68 U/L (38-126); Blood Urea Nitrogen 8 mg/dl (7-17); Calcium 8.6 mg/dl (8.4-10.2); Carbon Dioxide 24 mmol/L (22-30); Chloride 109 mmol/L (98-107); Estimated Creatinine Clearance 119 ml/min; Glucose 86 mg/dl (70-99); Hematocrit 25.6 % (37.0-47.0); Hemoglobin 8.2 g/dL (12.0-16.0); Mean Corpuscular Hgb 22.7 pg (27.0-31.0); Mean Corpuscular Volume 70.9 fL (81.0-99.0); Mean Platelet Volume 9.7 fL (7.4-10.4); Platelet Count 248 10^3/uL (130-400); Potassium 3.9 mmol/L (3.5-5.1); Red Blood Cell Count 3.61 10^6/uL (4.20-5.40); Red Cell Dist. Width 18.1 % (11.5-14.5); Sodium 137 mmol/L (135-145); Total Bilirubin 0.2 mg/dl (0.2-1.3); Total Protein 6.1 g/dl (6.3-8.2); eGFR > 60.00
[2024-02-03 09:07] LABS: White Blood Cell Count 2.3 10^3/uL (4.8-10.8)
--- NOTE | 2024-02-03 09:19 | PTCARENOTE ---
pt WBC result of 2.3 TT to [facility]
--- NOTE | 2024-02-03 10:24 | W.PN.HOSP.TC ---
Addendum entered and electronically signed by Matt Toribio MD 02/03/24 14:55:
[id number]
Original Note:
Today's Communication/Plan
-
cefdinir 300mg BID x 12 more days to complete total 14 day course
F/u Urology outpatient for stent removal
f/u pcp
cbc and bmp in 1 week
Assessment / Plan
Assessment / Plan
Physical Exam
General: Other (resting comfortably)
HEENT: Other
Respiratory: Clear; No Wheezes, Rales or Rhonchi
Cardiac: S1/S2 and Tachycardia; No Murmur
GI: Soft, Non Tender, Non Distended and Normal Bowel Sounds
Musculoskeletal: No Clubbing, No Cyanosis and No Edema
Skin: Warm and Dry
Neuro: Awake, Alert, Oriented, AO x 3 and Nonfocal/grossly intact
Psych: Calm
33-year-old female with history of nephrolithiasis with recent stone removal And stent exchange yesterday 01/[address] Cope now presenting for febrile episode last night associated with chills and worsening fever this morning.
PLAN:
#Severe sepsis
# Persistent pyelonephritis status post removal of stone
� Clinical signs of improvement on abx
� Status post stent exchange 01/30
- Urine cultures - small amount of strep spp although with profound evidence of sepsis with no other cause - and improvement with abx - will continue abx course to complete 14 day course: cefdinir 300mg BID x 12 more days
� Previous culture sensitive to ceftriaxone, switch to cefdinir on dc
� IV fluids
� Blood cultures NGTD
�Left ureteral stent is in proper position as per urology
� Outpatient stent removal after infection has improved - f/u urology outpatient
-f/u cbc, bmp outpatient in 1 week
#Hyponatremia
� Most likely secondary to hypovolemia, sepsis
� Monitor with resuscitation
-resolved
-f/u bmp outpatient
#IRENE
� Continue to monitor with IV fluids
-resolved
#Transaminitis
� Most likely secondary to sepsis
� Continue to monitor
#Hypothyroidism
� Follow-up TSH
#History of sinus tach
� Worsened with sepsis, now much improved
� Continue to monitor�follow-up outpatient with psychiatry, PCP
- as per pt - no changes from psychiatry after review of meds/HR
Myasthenia gravis
� Status post thymectomy next�continue resuscitation
#Anemia
� Chronic
- No evidence of blood loss
� Continue to follow-up outpatient
#DVT prophylaxis-
� HSQ
More than 30 minutes spent in discharge including
Final examination of the patient
Summarizing hospital stay
Instructions for continuing care to all relevant caregivers
Preparation of discharge records, prescriptions, and referral forms
Total time spent (35 in minutes):
Anticipated Discharge: Today
Subjective/Interval History
-
Date of Service: February 03, 2024
no acute events; feels much better
Objective Data
-
Labs:
Laboratory Results
02/03/24
06:52
WBC 2.3 L*
Hgb 8.2 L
Hct 25.6 L
Plt Count 248
Sodium 137
Potassium 3.9
Chloride 109 H
Carbon Dioxide 24
BUN 8
Creatinine 0.6
Glucose 86
Calcium 8.6
Total Bilirubin 0.2
AST 24
ALT 26
Alkaline Phosphatase 68
Vital Signs:
Vital Signs
Temp Pulse Resp BP Pulse Ox
98.1 F 99 18 127/95 100
02/03/24 07:00 02/03/24 07:00 02/03/24 07:00 02/03/24 07:00 02/03/24 07:00
I&O
02/02/24 02/03/24 02/04/24
06:59 06:59 06:59
Intake Total 1440 / 1440 1340 / 1340
Balance 1440 / 1440 1340 / 1340
Review of Systems
-
History Source: Patient
All other systems: Not reviewed unless documented
Data Reviewed
-
Labs: Labs Reviewed by me
--- NOTE | 2024-02-03 10:37 | W.DS.TRANS ---
DC Summary - Condominium Property [employer]
-
Discharge Instructions:
Discharge Diagnosis/Procedures severe sepsis
Activity As tolerated
Blood Work cbc, bmp in 1 week with pcp
Instructions:
Stand-Alone Forms:
Changes to Home Medications: Yes
Discharge Medications:
DC Medications w/original date entered in [facility]
levothyroxine 75 mcg tablet 75 mcg PO DAILY Thyroid 12/31/23
venlafaxine 150 mg capsule,extended release 24 hr 150 mg PO HS Mental Health/Anxiety 12/31/23
acetaminophen 500 mg tablet (Tylenol Extra Strength) 1,000 mg PO DAILYPRN PRN mild pain 02/01/24
cefdinir 300 mg capsule 300 mg PO BID 12 days #24 caps 02/03/24
Home Medication Changes
cefdinir 300 mg capsule 300 mg PO BID 12 days #24 caps 02/03/24
Pending Results: No
--- NOTE | 2024-02-03 12:05 | CM ---
Discharge to home today; no needs from Case Management
== END 2024-02-03 10:54 | disposition home or self-care (01) | DRG 871 ==
LOC: 3 WEST ACU 15:16
PROVIDERS: Physician Assistant; ADMITTING PHYSICIAN Internal Medicine; CONSULT PHYSICIAN Specialist; EMERGENCY PHYSICIAN Emergency Medicine; FAMILY PHYSICIAN Family Medicine
DX: A41.9 Sepsis, unspecified organism (principal); R65.21 Severe sepsis with septic shock; E87.1 Hypo-osmolality and hyponatremia; N17.9 Acute kidney failure, unspecified; N11.8 Other chronic tubulo-interstitial nephritis; F41.9 Anxiety disorder, unspecified; G70.00 Myasthenia gravis without (acute) exacerbation; D64.9 Anemia, unspecified; R74.01 Elevation of levels of liver transaminase levels; B96.20 Unspecified Escherichia coli [E. coli] as the cause of diseases classified elsewhere; E86.1 Hypovolemia; E86.0 Dehydration; E03.9 Hypothyroidism, unspecified; F32.A Depression, unspecified; E66.9 Obesity, unspecified; Z87.442 Personal history of urinary calculi; Z79.890 Hormone replacement therapy; Z88.1 Allergy status to other antibiotic agents; Z88.2 Allergy status to sulfonamides; Z88.8 Allergy status to other drugs, medicaments and biological substances
CPT/HCPCS: 80048; 80053; 81003; 81015; 83605; 84443; 84703; 85025; 85027; 87040; 87077; 87086; 93005; 96361; 96374; 99285

== ENCOUNTER → 2025-03-31 17:10 | Outpatient (REF) | payer OTHER, SELFPAY | LOC: RAD 17:10 | PROVIDERS: ATTENDING PHYSICIAN Family Medicine | DX: R31.0 Gross hematuria (principal) | CPT/HCPCS: 74018 ==